=== PATIENT | female | born 1945 | race Caucasian/White ===

== ENCOUNTER 2018-09-23 13:47 | Emergency (ER) | payer OTHER ==
[2018-09-23] MEDS ORDERED: MORPHINE 4 MG/ML SYR ONE (14:52)
[2018-09-23] MEDS ORDERED: ONDANSETRON 4 MG/2 ML VIAL ONE (14:52)
[2018-09-23] MEDS ORDERED: NA CHLORIDE 0.9% 1,000 ML ONE (14:52)
[2018-09-23 15:10] LABS: ALT/SGPT 27 U/L (12-78); AST/SGOT 17 U/L (15-37); Albumin 3.9 g/dL (3.4-5.0); Alkaline Phosphatase 62 U/L (45-117); BUN Blood Urea Nitrogen 22 mg/dL (7-18); Bicarbonate 27 mmol/L (21-32); Bilirubin Direct 0.1 mg/dL (0-0.2); Bilirubin Total 0.4 mg/dL (0.2-1.0); Glucose Level 106 mg/dL (74-106); Lipase 111 U/L (73-393); Protein, Total 7.4 g/dL (6.4-8.2); Sodium Level 139 mmol/L (136-145)
[2018-09-23 15:25] LABS: Absolute Lymphocytes (CBC) 2.3 K/uL (0.7-4.9); Absolute Monocytes 0.4 K/uL (0.1-1.3); Basophils % 1.1 % (0-1.3); Eosinophils % 3.3 % (0-4.4); Hematocrit 41.1 % (36.0-45.0); Lymphocytes % 46.5 % (15.3-44.8); MCH 32.8 pg (27.0-35.0); MCV 96.6 fL (80-100); MPV 8.6 fL (7.6-11.3); Monocytes % 8.9 % (3.3-12.3); RBC Red Blood Cell Count 4.26 M/uL (3.86-4.86)
[2018-09-23 15:46] LABS: Urine Blood NEGATIVE (NEG); Urine Glucose NEGATIVE (NEG); Urine Protein NEGATIVE (NEG)
--- NOTE | 2018-09-23 16:53 | RAD REPORT ---
EXAM DESCRIPTION: CT - Abdomen Pelvis W Contrast - 09/23/2018 4:34 pm CLINICAL HISTORY: Abdominal pain. COMPARISON: None. TECHNIQUE: Computed axial tomography of the abdomen and pelvis was obtained. 100 cc Isovue-300 is ad ministered intravenously. Oral contrast was given. All CT scans are performed using dose optimization technique as appropriate and may include automated exposure control or mA/KV adjustment according to patient size. FINDINGS: The liver, spleen, pancreas, adrenals and kidneys appear unremarkable. There is no evidence of diverticulitis A hysterectomy has been performed. A tiny umbilical hernia. An inguinal hernia is not seen IMPRESSION: No acute abnormality displayed
--- NOTE | 2018-09-23 16:57 | EDPHYS ---
Physician Documentation [facility] Name: Ghulam Acevedo Age: 73 yrs Sex: Female : 1945 Arrival Date: 09/23/2018 Time: 13:55 Bed 14 Private MD: ED Physician Antonia Yi HPI: 09/23 14:20 This 73 yrs old Female presents to ER via Ambulatory with complaints of ma2 Doctor Referral, Abdominal Pain. 14:20 The patient presents with abdominal pain. Onset: The symptoms/episode began/occurred ma2 suddenly, 12 day(s) ago. The symptoms do not radiate. Associated signs and symptoms: Pertinent positives: Pertinent negatives: nausea, vomiting, and diarrhea, nausea and vomiting, blood in stools, constipation, diarrhea, dysuria, palpitations, shortness of breath. The symptoms are described as constant. Severity of pain: At its worst the pain was moderate in the emergency department the pain is unchanged. The patient has not experienced similar symptoms in the past. Historical: - Allergies: 14:01 benzocaine; aj1 14:01 Keflex; aj1 - Home Meds: 14:01 "osteoporosis pill once a week" [Active]; aj1 - PMHx: 14:01 Osteoporosis; aj1 - PSHx: 14:01 Hernia repair; Knee surgery; rotator cuff repair; facial surgery; dental surgery; aj1 Appendectomy; - Immunization history:: Flu vaccine is not up to date. - Social history:: Smoking status: Patient/guardian denies using tobacco, Patient/guardian denies using alcohol, The patient lives alone, with family. - Ebola Screening: : Patient denies travel to an Ebola-affected area in the 21 days before illness onset. - Family history:: not pertinent. - Hospitalizations: : No recent hospitalization is reported. ROS: 14:20 Constitutional: Negative for fever, chills, and weight loss, Cardiovascular: Negative ma2 for chest pain, palpitations, and edema, Respiratory: Negative for shortness of breath, cough, wheezing, and pleuritic chest pain, Back: Negative for injury and pain, MS/Extremity: Negative for injury and deformity, Psych: Negative for depression, anxiety, suicide ideation, homicidal ideation, and hallucinations, Endocrine: Negative for neck swelling, polydipsia, polyuria, polyphagia, and marked weight changes. 14:20 Abdomen/GI: Positive for abdominal pain, Negative for nausea and vomiting, diarrhea, constipation, anorexia, rectal pain, rectal bleeding. 14:20 All other systems are negative. Exam: 14:20 Constitutional: This is a well developed, well nourished patient who is awake, alert, ma2 and in no acute distress. Eyes: Pupils equal round and reactive to light, extra-ocular motions intact. Lids and lashes normal. Conjunctiva and sclera are non-icteric and not injected. Cornea within normal limits. Periorbital areas with no swelling, redness, or edema. Neck: Trachea midline, no thyromegaly or masses palpated, and no cervical lymphadenopathy. Supple, full range of motion without nuchal rigidity, or vertebral point tenderness. No Meningismus. Cardiovascular: Regular rate and rhythm with a normal S1 and S2. No gallops, murmurs, or rubs. Normal PMI, no JVD. No pulse deficits. Respiratory: Lungs have equal breath sounds bilaterally, clear to auscultation and percussion. No rales, rhonchi or wheezes noted. No increased work of breathing, no retractions or nasal flaring. MS/ Extremity: Pulses equal, no cyanosis. Neurovascular intact. Full, normal range of motion. Neuro: Awake and alert, GCS 15, oriented to person, place, time, and situation. Cranial nerves II-XII grossly intact. Motor strength 5/5 in all extremities. Sensory grossly intact. Cerebellar exam normal. Normal gait. Psych: Awake, alert, with orientation to person, place and time. Behavior, mood, and affect are within normal limits. 14:20 Abdomen/GI: Inspection: abdomen appears normal, Bowel sounds: normal, Palpation: mass, that is hard, that is tender, approximately .5 cm(s), of the right lower quadrant, over right inguinal hernia, tender, i did not attempt reducing d/t tenderness, skin over is wnl . Vital Signs: 14:01 BP 149 / 67; Pulse 67; Resp 18; Temp 98.4; Pulse Ox 97% on R/A; Weight 82.1 kg (R); aj1 Height 5 ft. 5 in. (165.10 cm) (R); Pain 10/10; 14:56 BP 135 / 65; Pulse 66; Resp 14; Pulse Ox 95% ; bp 15:59 BP 114 / 66; Pulse 64; Resp 14; Pulse Ox 96% ; bp 16:42 BP 122 / 51; Pulse 65; Resp 14; Pulse Ox 95% ; bp 17:08 BP 112 / 49; Pulse 63; Resp 14; Pulse Ox 97% ; bp 14:01 Body Mass Index 30.12 (82.10 kg, 165.10 cm) aj1 MDM: 14:06 Patient medically screened. ma2 14:20 Differential diagnosis: MSK pain, hernia inguinal strangulated vs incarcerated, vs ma2 direct inguinal hernia '. 16:55 Data reviewed: vital signs, nurses notes, EMS record, radiologic studies, CT scan. ma2 Counseling: I had a detailed discussion with the patient and/or guardian regarding: the historical points, exam findings, and any diagnostic results supporting the discharge/admit diagnosis, the presence of at least one elevated blood pressure reading (>120/80) during this emergency department visit, the need for outpatient follow up. Response to treatment: the patient's symptoms have resolved after treatment. 09/23 14:04 Order name: Basic Metabolic Panel; Complete Time: 15:54 ma2 09/23 14:04 Order name: CBC with Diff; Complete Time: 15:54 ma2 09/23 14:04 Order name: Creatinine for Radiology; Complete Time: 15:54 ma2 09/23 14:04 Order name: Hepatic Function; Complete Time: 15:54 ma2 09/23 14:04 Order name: Lipase; Complete Time: 15:54 ma2 09/23 14:42 Order name: Urine Dipstick--Ancillary (enter results); Complete Time: 15:54 gm 09/23 14:04 Order name: NPO; Complete Time: 14:20 ma2 09/23 14:04 Order name: IV Saline Lock; Complete Time: 14:53 ma2 09/23 14:04 Order name: Labs collected and sent; Complete Time: 14:53 ma2 09/23 14:19 Order name: CT Abd/Pelvis - W/Contrast; Complete Time: 16:55 ma2 Administered Medications: 14:30 Drug: NS 0.9% 1000 ml Route: IV; Rate: 1 bolus; Site: right wrist; bp 15:30 Follow up: IV Status: Completed infusion; IV Intake: 1000ml bp 14:30 Drug: morphine 4 mg Route: IVP; Site: right wrist; bp 15:00 Follow up: Response: Pain is decreased bp 14:30 Drug: Zofran 4 mg Route: IVP; Site: right wrist; bp 15:00 Follow up: Response: No adverse reaction bp Disposition: 09/23/18 16:56 Discharged to Home. Impression: Abrasion of abdominal wall. - Condition is Stable. - Prescriptions for Tylenol- Codeine #3 300-30 mg Oral Tablet - take 2 tablet by ORAL route every 6 hours As needed; 30 tablet. - Medication Reconciliation Form, Thank You Letter, Antibiotic Education, Prescription Opioid Use form. - Follow up: Private Physician; When: Tomorrow; Reason: Continuance of care. Signatures: Dispatcher [employer] EDLeonarda Kelly RN RN aj1 Pj Jeffrey RN RN Antonia Najera MD MD ma2 Corrections: (The following items were deleted from the chart) 17:09 16:56 09/23/2018 16:56 Discharged to Home. Impression: Abrasion of abdominal wall. bp Condition is Stable. Forms are Medication Reconciliation Form, Thank You Letter, Antibiotic Education, Prescription Opioid Use. Follow up: Private Physician; When: Tomorrow; Reason: Continuance of care. ma2
--- NOTE | 2018-09-23 16:57 | ER ---
Nurse's Notes [facility] Name: Ghulam Acevedo Age: 73 yrs Sex: Female : 1945 Arrival Date: 09/23/2018 Time: 13:55 Bed 14 Private MD: Diagnosis: Abrasion of abdominal wall Presentation: 09/23 13:56 Presenting complaint: Patient states: 2 weeks ago she picked up a barrel of wet dirt aj1 and has been having abdominal pain ever since. Today she went to see her PHCP, she called Dr. Mcadams, who was concerned that her hernia might be strangulated, and told her to come to the ER immediately. Patient reports pain to right inguinal area. Denies N/V/D. Transition of care: patient was not received from another setting of care. Onset of symptoms was September 23, 2018. Risk Assessment: Do you want to hurt yourself or someone else? Patient reports no desire to harm self or others. Initial Sepsis Screen: Does the patient meet any 2 criteria? No. Patient's initial sepsis screen is negative. Does the patient have a suspected source of infection? Yes: Acute abdominal pain. Care prior to arrival: None. 13:56 Method Of Arrival: Ambulatory aj 13:56 Acuity: JENNIFER 3 aj1 Triage Assessment: 14:01 General: Appears in no apparent distress. uncomfortable, Behavior is calm, cooperative, aj1 appropriate for age. Pain: Complains of pain in right femoral area and right inguinal area Pain currently is 10 out of 10 on a pain scale. Neuro: Level of Consciousness is awake, alert, obeys commands. Cardiovascular: Patient's skin is warm and dry. Respiratory: Airway is patent Respiratory effort is even, unlabored, Respiratory pattern is regular, symmetrical. GI: Reports lower abdominal pain. Historical: - Allergies: 14:01 benzocaine; aj1 14:01 Keflex; aj1 - Home Meds: 14: "osteoporosis pill once a week" [Active]; aj1 - PMHx: 14:01 Osteoporosis; aj1 - PSHx: 14:01 Hernia repair; Knee surgery; rotator cuff repair; facial surgery; dental surgery; aj1 Appendectomy; - Immunization history:: Flu vaccine is not up to date. - Social history:: Smoking status: Patient/guardian denies using tobacco, Patient/guardian denies using alcohol, The patient lives alone, with family. - Ebola Screening: : Patient denies travel to an Ebola-affected area in the 21 days before illness onset. - Family history:: not pertinent. - Hospitalizations: : No recent hospitalization is reported. Screenin:54 Abuse screen: Denies threats or abuse. Denies injuries from another. Nutritional bp screening: No deficits noted. Tuberculosis screening: No symptoms or risk factors identified. Fall Risk None identified. Assessment: 14:10 General: Appears in no apparent distress. uncomfortable, Behavior is cooperative, bp appropriate for age, anxious. Pain: Complains of pain in right inguinal area. Neuro: Level of Consciousness is awake, alert, obeys commands, Oriented to person, place, time, situation, Appropriate for age. Cardiovascular: No deficits noted. Respiratory: Airway is patent Respiratory effort is even, unlabored, Respiratory pattern is regular, symmetrical. GI: No signs and/or symptoms were reported involving the gastrointestinal system. : No signs and/or symptoms were reported regarding the genitourinary system. EENT: No deficits noted. Derm: No deficits noted. Musculoskeletal: Circulation, motion, and sensation intact. Range of motion: intact in all extremities. 14:56 Reassessment: PT COMPLETED PO CONTRAST, CT NOTIFIED. bp 16:00 Reassessment: CT PENDING. VS STABLE ON MONITOR. bp 16:45 Reassessment: PT RETURNED FROM CT. bp 17:07 Reassessment: PT D/C HOME AMBULATORY, DX WITH ABDOMINAL WALL ABRASION. bp Vital Signs: 14:01 BP 149 / 67; Pulse 67; Resp 18; Temp 98.4; Pulse Ox 97% on R/A; Weight 82.1 kg (R); aj1 Height 5 ft. 5 in. (165.10 cm) (R); Pain 10/10; 14:56 BP 135 / 65; Pulse 66; Resp 14; Pulse Ox 95% ; bp 15:59 BP 114 / 66; Pulse 64; Resp 14; Pulse Ox 96% ; bp 16:42 BP 122 / 51; Pulse 65; Resp 14; Pulse Ox 95% ; bp 17:08 BP 112 / 49; Pulse 63; Resp 14; Pulse Ox 97% ; bp 14:01 Body Mass Index 30.12 (82.10 kg, 165.10 cm) aj1 ED Course: 13:55 Patient arrived in ED. tw3 13:59 Triage completed. aj1 14:01 Arm band placed on Patient placed in an exam room. aj1 14:02 Antonia Yi MD is Attending Physician. ma2 14:03 Pj Jeffrey, RN is Primary Nurse. bp 14:15 Inserted saline lock: 20 gauge in right wrist, using aseptic technique. Blood collected.bp 14:54 Patient has correct armband on for positive identification. Placed in gown. Bed in low bp position. Call light in reach. Side rails up X2. Adult w/ patient. Pulse ox on. NIBP on. 16:34 CT Abd/Pelvis - W/Contrast In Process Unspecified. EDMS 17:08 No provider procedures requiring assistance completed. IV discontinued, intact, bp bleeding controlled, No redness/swelling at site. Pressure dressing applied. Administered Medications: 14:30 Drug: NS 0.9% 1000 ml Route: IV; Rate: 1 bolus; Site: right wrist; bp 15:30 Follow up: IV Status: Completed infusion; IV Intake: 1000ml bp 14:30 Drug: morphine 4 mg Route: IVP; Site: right wrist; bp 15:00 Follow up: Response: Pain is decreased bp 14:30 Drug: Zofran 4 mg Route: IVP; Site: right wrist; bp 15:00 Follow up: Response: No adverse reaction bp Intake: 15:30 IV: 1000ml; Total: 1000ml. bp Outcome: 16:56 Discharge ordered by . ma2 17:08 Discharged to home ambulatory, with family. bp 17:08 Condition: stable 17:08 Discharge instructions given to patient, Instructed on discharge instructions, follow up and referral plans. medication usage, Demonstrated understanding of instructions, follow-up care, medications, Prescriptions given X 1. 17:09 Patient left the ED. bp Signatures: Dispatcher [employer] EDNM Leonarda Jones RN RN ajZoya Machado tw3 Pj Jeffrey, MURIEL RN bp Antonia Yi MD MD ma
== END 2018-09-23 17:09 | disposition home or self-care (01) ==
LOC: ER 13:47
DX: S30.811A Abrasion of abdominal wall, initial encounter (principal); Z88.6 Allergy status to analgesic agent
CPT/HCPCS: 36415; 74177; 80048; 80076; 81003; 83690; 85025; 96361; 96374; 96375; 99284; J2405; J7030; Q9967

== ENCOUNTER 2023-04-19 11:28 | Emergency (ER) | payer MEDICARE ==
--- OUTSIDE RECORDS SUMMARY | 2023-04-19 11:37 | XMS REPORT | Continuity of Care Document ---
:1945 Author Organization [facility] t Address [address] [place] [address] [place] [id number] Care Team Providers Name Role Phone Chaisdy Lo Primary Care Physician Chasidy Lo Attending Clinician Unavailable Alanna Fernández Attending Clinician KLAUS_Jamie Attending Clinician Unavailable Susy Mina Attending Clinician Ortiz Attending Clinician Unavailable CHASIDY LO Attending Clinician Unavailable PEDROSO_V Attending Clinician Unavailable Rocio Botello Attending Clinician ROCIO READ Attending Clinician Unavailable BWilliams Attending Clinician Unavailable Only, Adc Pob2 Test Attending Clinician Unavailable Demian Villafuerte DO Attending Clinician DEMIAN VILLAFUERTE Attending Clinician Unavailable Lissa RN, Claudia T Attending Clinician Unavailable Provider, [facility] Attending Clinician Unavailable SHARRON CHADWICK Attending Clinician Unavailable Lula PT, Rosemary T Attending Clinician Unavailable Sharron Chadwick MD Attending Clinician Luisa Lara PT Attending Clinician Unavailable Ana Martins PTA Attending Clinician Unavailable Doctor Unassigned, [place] Attending Clinician Unavailable Rajeev Rosa PT, Kristin Attending Clinician Unavailable Humphrey Muhammad MD Attending Clinician HUMPHREY MUHAMMAD Attending Clinician Unavailable HUMPHREY MUHAMMAD Attending Clinician Unavailable Rubina Rodrigez S Attending Clinician Cristian Le MD Attending Clinician CRISTIAN LE Attending Clinician Unavailable Edwin Jewell Attending Clinician EDWIN SWIFT Attending Clinician Unavailable YARELI WAGGONER Attending Clinician Unavailable Yareli Waggoner DO Attending Clinician Tono Marie DO Attending Clinician Thai Savage MD Attending Clinician THAI SAVAGE Attending Clinician Unavailable OWENS_T Admitting Clinician Unavailable Delbridge_T Admitting Clinician Unavailable CHASIDY LO Admitting Clinician Unavailable PEDROSO_V Admitting Clinician Unavailable BWilliams Admitting Clinician Unavailable HUMPHREY MUHAMMAD Admitting Clinician Unavailable YARELI WAGGONER Admitting Clinician Unavailable TONO MARIE Admitting Clinician Unavailable Payers Payer Name Policy Type Policy Number Effective Date Expiration Date Luiz prieto [employer] [id number] 2018-04-08spring 00:00:00 [facility] [id number] 2021-11-08 (MEDICARE 00:00:00 REPLACEMENT HMO) [employer] C1 [id number] 2020-11-08 Common g Medicare 00:00:00 [facility] [employer] C1 [id number] 2020-11-08 Common g Medicare 00:00:00 [facility] [employer] C1 [id number] 2020-11-08 Common g Medicare 00:00:00 [facility] [employer] C1 [id number] 2020-11-08 Common g Medicare 00:00:00 [facility] [employer] C1 [id number] 2020-11-08 Common g Medicare 00:00:00 [facility] [employer] C1 [id number] 2020-11-08 Common g Medicare 00:00:00 [facility] [employer] C1 [id number] 2020-11-08 Common g Medicare 00:00:00 [facility] [employer] C1 [id number] 2020-11-08 Common g Medicare 00:00:00 [facility] [employer] C1 [id number] 2020-11-08 Common g Medicare 00:00:00 [facility] [employer] C1 [id number] 2020-11-08 Common g Medicare 00:00:00 [facility] [employer] C1 [id number] 2020-11-08 Common g Medicare 00:00:00 [facility] [employer] C1 [id number] 2020-11-08 Common g Medicare 00:00:00 [facility] [employer] C1 [id number] 2020-11-08 Common g Medicare 00:00:00 [facility] [employer] C1 [id number] 2020-11-08 Common g Medicare 00:00:00 [facility] [employer] C1 [id number] 2020-11-08 Common g Medicare 00:00:00 [facility] [employer] C1 [id number] 2020-11-08 Common g Medicare 00:00:00 [facility] [employer] C1 [id number] 2020-11-08 Common g Medicare 00:00:00 [facility] [employer] C1 [id number] 2020-11-08 Common g Medicare 00:00:00 [facility] [employer] C1 [id number] 2020-11-08 Common g Medicare 00:00:00 [facility] Problems Condition Condition Condition Status Onset Resolution Last Treating Co mments Source Name Details Category Date Date Treatment Clinician Date [id number] Age-relate Problem Com wed d Spirit osteoporos - CHI is without [facility] pathologic Medica l [facility] fracture [id number] 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, left - CHI hand [facility] [id number] Genital Problem Common herpes Spirit simplex, - CHI unspecifie [facility] [id number] Migraine Problem Common with aura Spirit and - [facility]I without [facility] migrainosu Medica l s, not Center intractabl e [id number] Mixed Problem Common hyperlipid Spirit emia - [facility] [id number] Chronic Problem Common maxillary Spirit sinusitis - [facility] [id number] Body mass Problem Com mon index Spirit [BMI] - CHI 30.0-30.9, [facility] [id number] Other Problem Common obesity Spirit due to - CHI excess [facility] Lower Lower Problem Common urinary urinary Spirit tract tract - CHI symptoms symptoms [facility] due [facility] due to [facility] benign benign Medical prostatic prostatic Cent er hypertroph hyperplasi y a No known No known Disease Unive rs active active ity of problems problems [facility] Allergies, Adverse Reactions, Alerts Allergy Allergy Status Severity Reaction(s) Onset Inactive Treating Comm ents Source Name Type Date Date Clinician Ondanset Propensi Active Nausea 2015-11 More Univer s izabella ty to and/or 0-21 nausea, ity of adverse Vomiting 00:00: not with [place] reaction 00 phenergan Medic al [facility] ONDANSET DRUG Active Med N/V 2015-11 Univers IZABELLA INGREDI 0-21 ity of 00:00: [place] 00 Medical [facility] Clindamy Propensi Active Hives Univer s chapito ty to 6-08 ity of adverse 00:00: [place] reaction 00 Medical [facility] CLINDAMY DRUG Active High Hives Univers CHAPITO INGREDI 6-08 ity of 00:00: [place] 00 Medical Branch Benzocai Propensi Active Anaphylaxis 2008-11 U nivers ne ty to 1-05 ity of adverse 00:00: [place] reaction 00 Medical [facility] BENZOCAI DRUG Active High Anaphylaxis 2008-11 Uni vers NE INGREDI 1-05 ity of 00:00: [place] 00 Medical Branch Cephalex Propensi Active Shortness of Univers in ty to Breath 8-25 ity of Monohydr adverse 00:00: [place] ate reaction 00 Medical [facility] Meperidi Propensi Active Hives Univer s ne Hcl ty to 8-25 ity of adverse 00:00: [place] reaction 00 Medical s Branch CEPHALEX DRUG Active High SOB Univers IN INGREDI 07-02 ity of MONOHYDR 00:00: [place] ATE 00 Medical Branch MEPERIDI DRUG Active High Hives Univers NE HCL INGREDI 07-02 ity of 00:00: [place] 00 Medical Branch meperidi meperidi Active hives Common ne ne [facility] 7361 Drug Active Stop Common allergy breathing [facility] 8091 Drug Active Stop Common allergy breathing [facility] Social History Social Habit Start Date Stop Date Quantity Comments Source History of Tobacco Common [facility] Use [facility] Sex Assigned At Common Sp zia - [facility] Exposure to 2022-04-24 2022-05-04 Not sure [facility] SARS-CoV-2 (event) 00:00:00 14:58:00 [facility] Tobacco use and 2018-04-21 2018-04-21 Never used [facility] exposure 00:00:00 00:00:00 [facility] Smoking Status Start Date Stop Date Source Never Smoker [facility] Medications Ordered Filled Start Stop Current Ordering Indication Dosage Frequency Signature Comments Components Source Medication Medication Date Date Medication? Clinician (SIG) Name Name methylPREDN methylPREDN 2022- No QD methylPRED ISolone 4 ISolone 4 12-11 NISolone 4 MG MG 00:00: 00:00 MG 00 :00 Sulfamethox Sulfamethox 2021- No 1{table BID Sulfametho azole-Trime azole-Trime 07-10 t} xazole-Tri thoprim thoprim 00:00: 00:00 methoprim 800-160 MG 800-160 MG 00 :00 800-160 MG Bactrim DS Bactrim DS 2021- No 1{table BID Bactrim DS 800-160 MG 800-160 MG 06-30 t} 800-160 MG 00:00: 00:00 00 :00 Macrobid Macrobid 2021- No BID Macrobid 100 MG 100 MG 06-22 100 MG 00:00: 00:00 00 :00 Macrobid Macrobid 2- No BID Macrobid 100 MG 100 MG 06-22 100 MG 00:00: 00:00 00 :00 Symbicort Symbicort 2021- No 2{puffs BID Symbicort 80-4.5 80-4.5 -09-09 } 80-4.5 MCG/ACT MCG/ACT 00:00: 00:00 MCG/ACT 00 :00 Symbicort Symbicort 2- No 2{puffs BID Symbicort 80-4.5 80-4.5 -09-09 } 80-4.5 MCG/ACT MCG/ACT 00:00: 00:00 MCG/ACT 00 :00 Symbicort Symbicort 2021- No 2{puffs BID Symbicort 80-4.5 80-4.5 06-11 } 80-4.5 MCG/ACT MCG/ACT 00:00: 00:00 MCG/ACT 00 :00 Symbicort Symbicort 2- No 2{puffs BID Symbicort 80-4.5 80-4.5 06-11 } 80-4.5 MCG/ACT MCG/ACT 00:00: 00:00 MCG/ACT 00 :00 Symbicort Symbicort 2- No 2{puffs BID Symbicort 80-4.5 80-4.5 06-11 } 80-4.5 MCG/ACT MCG/ACT 00:00: 00:00 MCG/ACT 00 :00 Symbicort Symbicort 2- No 2{puffs BID Symbicort 80-4.5 80-4.5 06-11 } 80-4.5 MCG/ACT MCG/ACT 00:00: 00:00 MCG/ACT 00 :00 Symbicort Symbicort 2021- No 2{puffs BID Symbicort 80-4.5 80-4.5 06-11 } 80-4.5 MCG/ACT MCG/ACT 00:00: 00:00 MCG/ACT 00 :00 Symbicort Symbicort 2021- No 2{puffs BID Symbicort 80-4.5 80-4.5 06-11 } 80-4.5 MCG/ACT MCG/ACT 00:00: 00:00 MCG/ACT 00 :00 Symbicort Symbicort 2021- No 2{puffs BID Symbicort 80-4.5 80-4.5 06-11 } 80-4.5 MCG/ACT MCG/ACT 00:00: 00:00 MCG/ACT 00 :00 Symbicort Symbicort 2021- No 2{puffs BID Symbicort 80-4.5 80-4.5 06-11 } 80-4.5 MCG/ACT MCG/ACT 00:00: 00:00 MCG/ACT 00 :00 Symbicort Symbicort 2021- No 2{puffs BID Symbicort 80-4.5 80-4.5 06-11 } 80-4.5 MCG/ACT MCG/ACT 00:00: 00:00 MCG/ACT 00 :00 Nitrofurant Nitrofurant 2021- No 1{capsu BID Nitrofuran oin oin 06-11 le_with toin Macrocrysta Macrocrysta 00:00: 00:00 _food_o Macrocryst l 100 MG l 100 MG 00 :00 r_milk} al 100 MG Nitrofurant Nitrofurant 2021- No 1{capsu BID Nitrofuran oin oin 06-11 le_with toin Macrocrysta Macrocrysta 00:00: 00:00 _food_o Macrocryst l 100 MG l 100 MG 00 :00 r_milk} al 100 MG Phenazopyri Phenazopyri 2021- No 1{table TID Phenazopyr dine HCl dine HCl 06-11 t_after idine HCl 200 MG 200 MG 00:00: 00:00 _meals} 200 MG 00 :00 Phenazopyri Phenazopyri 0 2021- No 1{table TID Phenazopyr dine HCl dine HCl 06-11 t_after idine HCl 200 MG 200 MG 00:00: 00:00 _meals} 200 MG 00 :00 amoxicillin 2021-0 2021- No [id number] 1{tbl} Take 1 Univers -clavulanat 6-27 07-05 tablet by it y of e 00:00: 04:59 mouth 2 [place] (AUGMENTIN) 00 :00 (two) Medical 875-125 mg times Branch per tablet daily for 7 days. Amoxicillin Amoxicillin 2021-0 2021- No 1{table BID Amoxicilli -Pot -Pot 04-07-10 t} n-Pot Clavulanate Clavulanate 00:00: 00:00 Clavulanat 875-125 MG 875-125 MG 00 :00 e 875-125 MG Amoxicillin Amoxicillin 2021-2021- No 1{table BID Amoxicilli -Pot -Pot 04-07-10 t} n-Pot Clavulanate Clavulanate 00:00: 00:00 Clavulanat 875-125 MG 875-125 MG 00 :00 e 875-125 MG Baclofen 5 Baclofen 5 2021-0 2- No BID Baclofen 5 MG MG 5-20 06-19 MG 00:00: 00:00 00 :00 Baclofen 5 Baclofen 5 2-0 2022- No BID Baclofen 5 MG MG 5-20 06-19 MG 00:00: 00:00 00 :00 Baclofen 5 Baclofen 5 2-0 2022- No BID Baclofen 5 MG MG 5-20 06-19 MG 00:00: 00:00 00 :00 Baclofen 5 Baclofen 5 2022-0 2022- No BID Baclofen 5 MG MG 5-20 06-19 MG 00:00: 00:00 00 :00 Gabapentin Gabapentin 2022-0 No BID Gabapentin 300 MG 300 MG 5-05 300 MG 00:00: 00 Gabapentin Gabapentin 2022-0 No BID Gabapentin 300 MG 300 MG 5-05 300 MG 00:00: 00 Gabapentin Gabapentin 2022-0 No BID Gabapentin 600 MG 600 MG 5-05 600 MG 00:00: 00 Gabapentin Gabapentin 2022-0 No BID Gabapentin 600 MG 600 MG 5-05 600 MG 00:00: 00 Amoxicillin Amoxicillin 2021-0 2021- No 1{table BID Amoxicilli -Pot -Pot 12-03-05 t} n-Pot Clavulanate Clavulanate 00:00: 00:00 Clavulanat 875-125 MG 875-125 MG 00 :00 e 875-125 MG Amoxicillin Amoxicillin 0 2021- No 1{table BID Amoxicilli -Pot -Pot 26 02-05 t} n-Pot Clavulanate Clavulanate 00:00: 00:00 Clavulanat 875-125 MG 875-125 MG 00 :00 e 875-125 MG traMADol traMADol 2020-11 No 1{table traMADol HCl 50 MG HCl 50 MG 2-03 t_as_ne HCl 50 MG 00:00: eded} 00 traMADol traMADol 2020-11 No 1{table traMADol HCl 50 MG HCl 50 MG 2-03 t_as_ne HCl 50 MG 00:00: eded} traMADol traMADol 2020-11 No 1{table traMADol HCl 50 MG HCl 50 MG 2-03 t_as_ne HCl 50 MG 00:00: eded} 00 traMADol traMADol 2020-11 No 1{table traMADol HCl 50 MG HCl 50 MG 2-03 t_as_ne HCl 50 MG 00:00: eded} 00 traMADol traMADol 2020-11 No 1{table traMADol HCl 50 MG HCl 50 MG 2-03 t_as_ne HCl 50 MG 00:00: eded} 00 traMADol traMADol 2020-11 No 1{table traMADol HCl 50 MG HCl 50 MG 2-03 t_as_ne HCl 50 MG 00:00: eded} 00 traMADol traMADol 2020-11 No 1{table traMADol HCl 50 MG HCl 50 MG 2-03 t_as_ne HCl 50 MG 00:00: eded} 00 traMADol traMADol 2020-11 No 1{table traMADol HCl 50 MG HCl 50 MG 2-03 t_as_ne HCl 50 MG 00:00: eded} 00 traMADol traMADol 2020-11 No 1{table traMADol HCl 50 MG HCl 50 MG 2-03 t_as_ne HCl 50 MG 00:00: eded} 00 traMADol traMADol 2020-11 No 1{table traMADol HCl 50 MG HCl 50 MG 2-03 t_as_ne HCl 50 MG 00:00: eded} 00 traMADol traMADol 2020-11 No 1{table traMADol HCl 50 MG HCl 50 MG 2-03 t_as_ne HCl 50 MG 00:00: eded} 00 traMADol traMADol 2020-11 No 1{table traMADol HCl 50 MG HCl 50 MG 2-03 t_as_ne HCl 50 MG 00:00: eded} 00 traMADol traMADol 2020-11 No 1{table traMADol HCl 50 MG HCl 50 MG 2-03 t_as_ne HCl 50 MG 00:00: eded} 00 traMADol traMADol 2020-11 No 1{table traMADol HCl 50 MG HCl 50 MG 2-03 t_as_ne HCl 50 MG 00:00: eded} 00 Meloxicam Meloxicam 2020-11- No 1{table QD Meloxicam 7.5 MG 7.5 MG 0-25 11-23 t} 7.5 MG 00:00: 00:00 00 :00 Meloxicam Meloxicam 2020-11- No 1{table QD Meloxicam 7.5 MG 7.5 MG 0-25 11-23 t} 7.5 MG 00:00: 00:00 00 :00 Meloxicam Meloxicam 2020-11- No 1{table QD Meloxicam 7.5 MG 7.5 MG 0-25 11-23 t} 7.5 MG 00:00: 00:00 00 :00 Meloxicam Meloxicam 2020-11- No 1{table QD Meloxicam 7.5 MG 7.5 MG 0-25 11-23 t} 7.5 MG 00:00: 00:00 00 :00 Meloxicam Meloxicam 2020-11- No 1{table QD Meloxicam 7.5 MG 7.5 MG 0-25 11-23 t} 7.5 MG 00:00: 00:00 00 :00 Meloxicam Meloxicam 2020-11- No 1{table QD Meloxicam 7.5 MG 7.5 MG 0-25 11-23 t} 7.5 MG 00:00: 00:00 00 :00 Meloxicam Meloxicam 2020-11- No 1{table QD Meloxicam 7.5 MG 7.5 MG 0-25 11-23 t} 7.5 MG 00:00: 00:00 00 :00 Maxalt 10 Maxalt 10 2020-11 No QD Maxalt 10 MG MG 0-04 MG 00:00: 00 Maxalt 10 Maxalt 10 2020-11 No QD Maxalt 10 MG MG 0-04 MG 00:00: 00 Maxalt 10 Maxalt 10 2020-11 No QD Maxalt 10 MG MG 0-04 MG 00:00: 00 Maxalt 10 Maxalt 10 2020-11 No QD Maxalt 10 MG MG 0-04 MG 00:00: 00 Aimovig 140 Aimovig 140 2020-11 202- No Aimovig MG/ML MG/ML 0-04 01-31 140 MG/ML 00:00: 00:00 00 :00 Aimovig 140 Aimovig 140 2020-11- No Aimovig MG/ML MG/ML 0-04 -31 140 MG/ML 00:00: 00:00 00 :00 Aimovig 140 Aimovig 140 2020-11- No Aimovig MG/ML MG/ML 0-04 -31 140 MG/ML 00:00: 00:00 00 :00 Aimovig 140 Aimovig 140 2020-11- No Aimovig MG/ML MG/ML 0-04 -31 140 MG/ML 00:00: 00:00 00 :00 Imitrex 50 Imitrex 50 2020-0 No BID Imitrex 50 MG MG 9-29 MG 00:00: 00 Imitrex 50 Imitrex 50 2020-0 No BID Imitrex 50 MG MG 9-29 MG 00:00: 00 Imitrex 50 Imitrex 50 2020-0 No BID Imitrex 50 MG MG 9-29 MG 00:00: 00 Imitrex 50 Imitrex 50 2020-0 No BID Imitrex 50 MG MG 9-29 MG 00:00: 00 Imitrex 50 Imitrex 50 2020-0 No BID Imitrex 50 MG MG 9-29 MG 00:00: 00 Imitrex 50 Imitrex 50 2020-0 No BID Imitrex 50 MG MG 9-29 MG 00:00: 00 Imitrex 50 Imitrex 50 2020-0 No BID Imitrex 50 MG MG 9-29 MG 00:00: 00 Imitrex 50 Imitrex 50 2020-0 No BID Imitrex 50 MG MG 9-29 MG 00:00: 00 Imitrex 50 Imitrex 50 2020-0 No BID Imitrex 50 MG MG 9-29 MG 00:00: 00 Imitrex 50 Imitrex 50 2020-0 No BID Imitrex 50 MG MG 9-29 MG 00:00: 00 Imitrex 50 Imitrex 50 2020-0 No BID Imitrex 50 MG MG 9-29 MG 00:00: 00 Imitrex 50 Imitrex 50 2020-0 No BID Imitrex 50 MG MG 9-29 MG 00:00: 00 Imitrex 50 Imitrex 50 2020-0 No BID Imitrex 50 MG MG 9-29 MG 00:00: 00 Imitrex 50 Imitrex 50 2020-0 No BID Imitrex 50 MG MG 9-29 MG 00:00: 00 Imitrex 50 Imitrex 50 2020-0 No BID Imitrex 50 MG MG 9-29 MG 00:00: 00 Imitrex 50 Imitrex 50 2020-0 No BID Imitrex 50 MG MG 9-29 MG 00:00: 00 Imitrex 50 Imitrex 50 2020-0 No BID Imitrex 50 MG MG 9-29 MG 00:00: 00 Imitrex 50 Imitrex 50 2020-0 No BID Imitrex 50 MG MG 9-29 MG 00:00: 00 Imitrex 50 Imitrex 50 2020-0 No BID Imitrex 50 MG MG 9-29 MG 00:00: 00 Imitrex 50 Imitrex 50 2020-0 No BID Imitrex 50 MG MG 9-29 MG 00:00: 00 Imitrex 50 Imitrex 50 2020-0 No BID Imitrex 50 MG MG 9-29 MG 00:00: 00 Imitrex 50 Imitrex 50 2020-0 No BID Imitrex 50 MG MG 9-29 MG 00:00: 00 Imitrex 50 Imitrex 50 2020-0 No BID Imitrex 50 MG MG 9-29 MG 00:00: 00 Imitrex 50 Imitrex 50 2020-0 No BID Imitrex 50 MG MG 9-29 MG 00:00: 00 Imitrex 50 Imitrex 50 2021-0 No BID Imitrex 50 MG MG 9-29 MG 00:00: 00 Imitrex 50 Imitrex 50 0 No BID Imitrex 50 MG MG 9-29 MG 00:00: 00 Imitrex 50 Imitrex 50 0 No BID Imitrex 50 MG MG 9-29 MG 00:00: 00 Imitrex 50 Imitrex 50 No BID Imitrex 50 MG MG 9-29 MG 00:00: 00 Imitrex 50 Imitrex 50 No BID Imitrex 50 MG MG 9-29 MG 00:00: 00 Imitrex 50 Imitrex 50 No BID Imitrex 50 MG MG 9-29 MG 00:00: 00 Topiramate Topiramate No 1{table QD Topiramate 25 MG 25 MG 9-27 t} 25 MG 00:00: 00 Topiramate Topiramate 0 No 1{table QD Topiramate 25 MG 25 MG 9-27 t} 25 MG 00:00: 00 Topiramate Topiramate No 1{table QD Topiramate 25 MG 25 MG 9-27 t} 25 MG 00:00: 00 Topiramate Topiramate 0 No 1{table QD Topiramate 25 MG 25 MG 9-27 t} 25 MG 00:00: 00 Topiramate Topiramate 0 No 1{table QD Topiramate 25 MG 25 MG 9-27 t} 25 MG 00:00: 00 Topiramate Topiramate 0 No 1{table QD Topiramate 25 MG 25 MG 9-27 t} 25 MG 00:00: 00 Topiramate Topiramate No 1{table QD Topiramate 25 MG 25 MG 9-27 t} 25 MG 00:00: 00 Calcium Yes 1{tbl} Take 1 Univer s Carbonate-V 7-26 tablet by ity of it D3-Min 13:10: mouth. [place] 600 mg 42 Medical calcium- Branch 400 unit tablet LOVAZA, Yes Take by Univers omega-3-aci 7-26 mouth. ity of d ethyl 13:10: [place] esters, 1 42 Medical gram Branch capsule Calcium Yes 1{tbl} Take 1 Univer s Carbonate-V 7-26 tablet by ity of it D3-Min 13:10: mouth. [place] 600 mg 42 Medical calcium- Branch 400 unit tablet LOVAZA, [address] [facility] omega-3-aci 7-26 mouth. ity of d ethyl 13:10: [place] esters, 1 42 Medical gram Branch capsule Calcium 2020-0 Yes 1{tbl} Take 1 Univer s Carbonate-V 7-26 tablet by ity of it D3-Min 13:10: mouth. [place] 600 mg 42 Medical calcium- Branch 400 unit tablet LOVAZA, [address] [facility] omega-3-aci 7-26 mouth. ity of d ethyl 13:10: [place] esters, 1 42 Medical gram Branch capsule Calcium 2020-0 Yes 1{tbl} Take 1 Univer s Carbonate-V 7-26 tablet by ity of it D3-Min 13:10: mouth. [place] 600 mg 42 Medical calcium- Branch 400 unit tablet LOVAZA, [address] [facility] omega-3-aci 7-26 mouth. ity of d ethyl 13:10: [place] esters, 1 42 Medical gram Branch capsule Calcium 2020-0 Yes 1{tbl} Take 1 Univer s Carbonate-V 7-26 tablet by ity of it D3-Min 13:10: mouth. [place] 600 mg 42 Medical calcium- Branch 400 unit tablet LOVAZA, [address] [facility] omega-3-aci 7-26 mouth. ity of d ethyl 13:10: [place] esters, 1 42 Medical gram Branch capsule Calcium 2020-0 Yes 1{tbl} Take 1 Univer s Carbonate-V 7-26 tablet by ity of it D3-Min 13:10: mouth. [place] 600 mg 42 Medical calcium- Branch 400 unit tablet LOVAZA, 2020-[address] [facility] omega-3-aci 7-26 mouth. ity of d ethyl 13:10: [place] esters, 1 42 Medical gram Branch capsule Calcium 2020-0 Yes 1{tbl} Take 1 Univer s Carbonate-V 7-26 tablet by ity of it D3-Min 13:10: mouth. [place] 600 mg 42 Medical calcium- Branch 400 unit tablet LOVAZA, 2020-[address] [facility] omega-3-aci 7-26 mouth. ity of d ethyl 13:10: [place] esters, 1 42 Medical gram Branch capsule Calcium 2020-0 Yes 1{tbl} Take 1 Univer s Carbonate-V 7-26 tablet by ity of it D3-Min 13:10: mouth. [place] 600 mg 42 Medical calcium- Branch 400 unit tablet LOVAZA, [address] [facility] omega-3-aci 7-26 mouth. ity of d ethyl 13:10: [place] esters, 1 42 Medical gram Branch capsule Calcium 2020-0 Yes 1{tbl} Take 1 Univer s Carbonate-V 7-26 tablet by ity of it D3-Min 13:10: mouth. [place] 600 mg 42 Medical calcium- Branch 400 unit tablet LOVAZA, 2020-[address] [facility] omega-3-aci 7-26 mouth. ity of d ethyl 13:10: [place] esters, 1 42 Medical gram Branch capsule Calcium 2020-0 Yes 1{tbl} Take 1 Univer s Carbonate-V 7-26 tablet by ity of it D3-Min 13:10: mouth. [place] 600 mg 42 Medical calcium- Branch 400 unit tablet LOVAZA, 2020-[address] [facility] omega-3-aci 7-26 mouth. ity of d ethyl 13:10: [place] esters, 1 42 Medical gram Branch capsule Calcium 2020-0 Yes 1{tbl} Take 1 Univer s Carbonate-V 7-26 tablet by ity of it D3-Min 13:10: mouth. [place] 600 mg 42 Medical calcium- Branch 400 unit tablet LOVAZA, 2020-[address] [facility] omega-3-aci 7-26 mouth. ity of d ethyl 13:10: [place] esters, 1 42 Medical gram Branch capsule Calcium 2020-0 Yes 1{tbl} Take 1 Univer s Carbonate-V 7-26 tablet by ity of it D3-Min 13:10: mouth. [place] 600 mg 42 Medical calcium- Branch 400 unit tablet LOVAZA, 2020-[address] [facility] omega-3-aci 7-26 mouth. ity of d ethyl 13:10: [place] esters, 1 42 Medical gram Branch capsule Calcium 2020-0 Yes 1{tbl} Take 1 Univer s Carbonate-V 7-26 tablet by ity of it D3-Min 13:10: mouth. [place] 600 mg 42 Medical calcium- Branch 400 unit tablet LOVAZA, 0 Yes Take by Univers omega-3-aci 7-26 mouth. ity of d ethyl 13:10: [place] esters, 1 42 Medical gram Branch capsule Calcium 0 Yes 1{tbl} Take 1 Univer s Carbonate-V 7-26 tablet by ity of it D3-Min 13:10: mouth. [place] 600 mg 42 Medical calcium- Branch 400 unit tablet LOVAZA, 0 Yes Take by Univers omega-3-aci 7-26 mouth. ity of d ethyl 13:10: [place] esters, 1 42 Medical gram Branch capsule Calcium 0 Yes 1{tbl} Take 1 Univer s Carbonate-V 7-26 tablet by ity of it D3-Min 13:10: mouth. [place] 600 mg 42 Medical calcium- Branch 400 unit tablet LOVAZA, 0 Yes Take by Univers omega-3-aci 7-26 mouth. ity of d ethyl 13:10: [place] esters, 1 42 Medical gram Branch capsule Calcium Yes 1{tbl} Take 1 Univer s Carbonate-V 7-26 tablet by ity of it D3-Min 13:10: mouth. [place] 600 mg 42 Medical calcium- Branch 400 unit tablet LOVAZA, [address] [facility] omega-3-aci 7-26 mouth. ity of d ethyl 13:10: [place] esters, 1 42 Medical gram Branch capsule cyclobenzap 2020-1 Yes [id number] 10mg Take 1 Univers rine 10 mg 0-22 tablet by ity of tablet 00:00: mouth 3 (three) Medical times Branch daily. cyclobenzap 2020-1 Yes [id number] 10mg Take 1 Univers rine 10 mg 0-22 tablet by ity of tablet 00:00: mouth 3 (three) Medical times Branch daily. cyclobenzap 2020-1 Yes [id number] 10mg Take 1 Univers rine 10 mg 0-22 tablet by ity of tablet 00:00: mouth 3 (three) Medical times Branch daily. cyclobenzap 2020-1 Yes [id number] 10mg Take 1 Univers rine 10 mg 0-22 tablet by ity of tablet 00:00: mouth 3 (three) Medical times Branch daily. cyclobenzap 2020-1 Yes [id number] 10mg Take 1 Univers rine 10 mg 0-22 tablet by ity of tablet 00:00: mouth 3 00 (three) Medical times Branch daily. cyclobenzap 2020-1 Yes [id number] 10mg Take 1 [facility] 10 mg 0-22 tablet by [facility] tablet 00:00: mouth 3 [place] 00 (three) Medical times [facility] daily. cyclobenzap 2020-1 Yes [id number] 10mg Take 1 [facility] 10 mg 0-22 tablet by [facility] tablet 00:00: mouth 3 [place] 00 (three) Medical times [facility] daily. cyclobenzap 2020-1 Yes [id number] 10mg Take 1 [facility] 10 mg 0-22 tablet by [facility] tablet 00:00: mouth 3 00 (three) Medical times [facility] daily. cyclobenzap 2020-1 Yes [id number] 10mg Take 1 [facility] 10 mg 0-22 tablet by [facility] tablet 00:00: mouth 3 (three) [facility] times [facility] daily. cyclobenzap 2020-1 Yes [id number] 10mg Take 1 [facility] 10 mg 0-22 tablet by [facility] tablet 00:00: mouth 3 (three) Medical times [facility] daily. cyclobenzap 2020-1 Yes [id number] 10mg Take 1 [facility] r[facility] 10 mg 0-22 tablet by [facility] tablet 00:00: mouth 3 (three) [facility] times [facility] daily. cyclobenzap 2020-1 Yes [id number] 10mg Take 1 [facility] r[facility] 10 mg 0-22 tablet by [facility] tablet 00:00: mouth 3 00 (three) [facility] times [facility] daily. cyclobenzap 2020-1 Yes [id number] 10mg Take 1 [facility] r[facility] 10 mg 0-22 tablet by [facility] tablet 00:00: mouth 3 00 (three) [facility] times [facility] daily. cyclobenzap 2020-1 Yes [id number] 10mg Take 1 [facility] 10 mg 0-22 tablet by [facility] tablet 00:00: mouth 3 00 (three) Medical times [facility] daily. cyclobenzap 2020-1 Yes [id number] 10mg Take 1 [facility] r[facility] 10 mg 0-22 tablet by [facility] tablet 00:00: mouth 3 00 (three) Medical times [facility] daily. cyclobenzap 2020-1 Yes [id number] 10mg Take 1 [facility] rine 10 mg 0-22 tablet by [facility] tablet 00:00: mouth 3 [place] 00 (three) Medical times [facility] daily. acetaminoph 2020-0 Yes [id number] 1{tbl} Take 1 [facility] en-codeine 4-15 tablet by [facility] of (TYLENOL-CO 00:00: mouth [place] DEINE #3) 00 every 4 Medical 300-30 mg (four) Branch tablet hours as needed for Pain (scale 1-3). acetaminoph 2020-0 Yes [id number] 1{tbl} Take 1 [facility] en-codeine 4-15 tablet by [facility] of (TYLENOL-CO 00:00: mouth [place] DEINE #3) 00 every 4 Medical 300-30 mg (four) Branch tablet hours as needed for Pain (scale 1-3). acetaminoph 2020-0 Yes [id number] 1{tbl} Take 1 [facility] en-codeine 4-15 tablet by [facility] of (TYLENOL-CO 00:00: mouth [place] DEINE #3) 00 every 4 Medical 300-30 mg (four) Branch tablet hours as needed for Pain (scale 1-3). acetaminoph 2020-0 Yes [id number] 1{tbl} Take 1 [facility] en-codeine 4-15 tablet by [facility] of (TYLENOL-CO 00:00: mouth [place] DEINE #3) 00 every 4 Medical 300-30 mg (four) Branch tablet hours as needed for Pain (scale 1-3). acetaminoph 2020-0 Yes [id number] 1{tbl} Take 1 [facility] en-codeine 4-15 tablet by [facility] of (TYLENOL-CO 00:00: mouth [place] DEINE #3) 00 every 4 Medical 300-30 mg (four) Branch tablet hours as needed for Pain (scale 1-3). acetaminoph 2020-0 Yes [id number] 1{tbl} Take 1 [facility] en-codeine 4-15 tablet by [facility] of (TYLENOL-CO 00:00: mouth [place] DEINE #3) 00 every 4 Medical 300-30 mg (four) Branch tablet hours as needed for Pain (scale 1-3). acetaminoph 2020-0 Yes [id number] 1{tbl} Take 1 [facility] en-codeine 4-15 tablet by [facility] of (TYLENOL-CO 00:00: mouth [place] DEINE #3) 00 every 4 Medical 300-30 mg (four) Branch tablet hours as needed for Pain (scale 1-3). acetaminoph 2020-0 Yes [id number] 1{tbl} Take 1 [facility] en-codeine 4-15 tablet by [facility] of (TYLENOL-CO 00:00: mouth [place] DEINE #3) 00 every 4 Medical 300-30 mg (four) Branch tablet hours as needed for Pain (scale 1-3). acetaminoph 2020-0 Yes [id number] 1{tbl} Take 1 [facility] en-codeine 4-15 tablet by [facility] of (TYLENOL-CO 00:00: mouth [place] DEINE #3) 00 every 4 Medical 300-30 mg (four) Branch tablet hours as needed for Pain (scale 1-3). acetaminoph 2020-0 Yes [id number] 1{tbl} Take 1 [facility] en-codeine 4-15 tablet by [facility] of (TYLENOL-CO 00:00: mouth [place] DEINE #3) 00 every 4 Medical 300-30 mg (four) Branch tablet hours as needed for Pain (scale 1-3). acetaminoph 2020-0 Yes [id number] 1{tbl} Take 1 [facility] en-codeine 4-15 tablet by [facility] of (TYLENOL-CO 00:00: mouth [place] DEINE #3) 00 every 4 Medical 300-30 mg (four) Branch tablet hours as needed for Pain (scale 1-3). acetaminoph 2020-0 Yes [id number] 1{tbl} Take 1 [facility] en-codeine 4-15 tablet by [facility] of (TYLENOL-CO 00:00: mouth [place] DEINE #3) 00 every 4 Medical 300-30 mg (four) Branch tablet hours as needed for Pain (scale 1-3). acetaminoph 2020-0 Yes [id number] 1{tbl} Take 1 [facility] en-codeine 4-15 tablet by [facility] of (TYLENOL-CO 00:00: mouth [place] DEINE #3) 00 every 4 Medical 300-30 mg (four) Branch tablet hours as needed for Pain (scale 1-3). acetaminoph 2020-0 Yes [id number] 1{tbl} Take 1 [facility] en-codeine 4-15 tablet by [facility] of (TYLENOL-CO 00:00: mouth [place] DEINE #3) 00 every 4 Medical 300-30 mg (four) Branch tablet hours as needed for Pain (scale 1-3). acetaminoph 2020-0 Yes [id number] 1{tbl} Take 1 [facility] en-codeine 4-15 tablet by [facility] of (TYLENOL-CO 00:00: mouth [place] DEINE #3) 00 every 4 Medical 300-30 mg (four) Branch tablet hours as needed for Pain (scale 1-3). acetaminoph 2020-0 Yes [id number] 1{tbl} Take 1 [facility] en-codeine 4-15 tablet by [facility] of (TYLENOL-CO 00:00: mouth [place] DEINE #3) 00 every 4 Medical 300-30 mg (four) Branch tablet hours as needed for Pain (scale 1-3). alendronate Yes TAKE 1 [facility] ers 70 mg 7-13 TABLET BY [facility] of tablet 00:00: MOUTH WEEKLY Medical BEFORE Branch BREAKFAST, ON AN EMPTY STOMACH: REMAIN UPRIGHT FOR 30 MINUTES alendronate Yes TAKE 1 [facility] ers 70 mg 7-13 TABLET BY it[facility] of tablet 00:00: MOUTH WEEKLY Medical BEFORE Branch BREAKFAST, ON AN EMPTY STOMACH: REMAIN UPRIGHT FOR 30 MINUTES alendronate Yes TAKE 1 [facility] 70 mg 7-13 TABLET BY [facility] of tablet 00:00: MOUTH WEEKLY Medical BEFORE Branch BREAKFAST, ON AN EMPTY STOMACH: REMAIN UPRIGHT FOR 30 MINUTES alendronate Yes TAKE 1 [facility] 70 mg 7-13 TABLET BY [facility] of tablet 00:00: MOUTH WEEKLY Medical BEFORE Branch BREAKFAST, ON AN EMPTY STOMACH: REMAIN UPRIGHT FOR 30 MINUTES alendronate Yes TAKE 1 [facility] 70 mg 7-13 TABLET BY [facility] of tablet 00:00: MOUTH WEEKLY Medical BEFORE Branch BREAKFAST, ON AN EMPTY STOMACH: REMAIN UPRIGHT FOR 30 MINUTES alendronate Yes TAKE 1 [facility] 70 mg 7-13 TABLET BY [facility] of tablet 00:00: MOUTH WEEKLY Medical BEFORE Branch BREAKFAST, ON AN EMPTY STOMACH: REMAIN UPRIGHT FOR 30 MINUTES alendronate Yes TAKE 1 [facility] 70 mg 7-13 TABLET BY it[facility] of tablet 00:00: MOUTH WEEKLY Medical BEFORE Branch BREAKFAST, ON AN EMPTY STOMACH: REMAIN UPRIGHT FOR 30 MINUTES alendronate Yes TAKE 1 [facility] 70 mg 7-13 TABLET BY [facility] of tablet 00:00: MOUTH ONCE WEEKLY Medical BEFORE Branch BREAKFAST, ON AN EMPTY STOMACH: REMAIN UPRIGHT FOR 30 MINUTES alendronate Yes TAKE 1 [facility] 70 mg 7-13 TABLET BY [facility] of tablet 00:00: MOUTH ONCE WEEKLY Medical BEFORE Branch BREAKFAST, ON AN EMPTY STOMACH: REMAIN UPRIGHT FOR 30 MINUTES alendronate Yes TAKE 1 [facility] 70 mg 7-13 TABLET BY [facility] of tablet 00:00: MOUTH ONCE WEEKLY Medical BEFORE Branch BREAKFAST, ON AN EMPTY STOMACH: REMAIN UPRIGHT FOR 30 MINUTES alendronate Yes TAKE 1 [facility] 70 mg 7-13 TABLET BY [facility] of tablet 00:00: MOUTH ONCE WEEKLY Medical BEFORE Branch BREAKFAST, ON AN EMPTY STOMACH: REMAIN UPRIGHT FOR 30 MINUTES alendronate Yes TAKE 1 [facility] 70 mg 7-13 TABLET BY [facility] of tablet 00:00: MOUTH ONCE WEEKLY Medical BEFORE Branch BREAKFAST, ON AN EMPTY STOMACH: REMAIN UPRIGHT FOR 30 MINUTES alendronate Yes TAKE 1 [facility] 70 mg 7-13 TABLET BY [facility] of tablet 00:00: MOUTH ONCE WEEKLY Medical BEFORE Branch BREAKFAST, ON AN EMPTY STOMACH: REMAIN UPRIGHT FOR 30 MINUTES alendronate Yes TAKE 1 [facility] 70 mg 7-13 TABLET BY [facility] of tablet 00:00: MOUTH ONCE WEEKLY Medical BEFORE Branch BREAKFAST, ON AN EMPTY STOMACH: REMAIN UPRIGHT FOR 30 MINUTES alendronate Yes TAKE 1 [facility] 70 mg 7-13 TABLET BY [facility] of tablet 00:00: MOUTH ONCE WEEKLY Medical BEFORE Branch BREAKFAST, ON AN EMPTY STOMACH: REMAIN UPRIGHT FOR 30 MINUTES alendronate Yes TAKE 1 [facility] 70 mg 7-13 TABLET BY [facility] of tablet 00:00: MOUTH ONCE WEEKLY Medical BEFORE Branch BREAKFAST, ON AN EMPTY STOMACH: REMAIN UPRIGHT FOR 30 MINUTES valACYclovi Yes 500mg Take 500 [facility] r 500 mg 8-12 mg by [facility] tablet 00:00: mouth. [facility] valACYclovi Yes 500mg Take 500 [facility] n[facility] r 500 mg 8-12 mg by [facility] of tablet 00:00: mouth. [facility] valACYclovi Yes 500mg Take 500 [facility] n[facility] r 500 mg 8-12 mg by [facility] of tablet 00:00: mouth. [facility] valACYclovi 2015-0 Yes 500mg Take 500 [facility] n[facility] r 500 mg 8-12 mg by [facility] of tablet 00:00: mouth. [facility] valACYclovi 2014-0 Yes 500mg Take 500 [facility] n[facility] r 500 mg 8-12 mg by [facility] of tablet 00:00: mouth. [facility] valACYclovi 2014-0 Yes 500mg Take 500 [facility] n[facility] r 500 mg 8-12 mg by it[facility] of tablet 00:00: mouth. [facility] valACYclovi 2014-0 Yes 500mg Take 500 [facility] n[facility] r 500 mg 8-12 mg by [facility] of tablet 00:00: mouth. [facility] valACYclovi 2014-0 Yes 500mg Take 500 [facility] n[facility] r 500 mg 8-12 mg by [facility] of tablet 00:00: mouth. [facility] valACYclovi 2014-0 Yes 500mg Take 500 [facility] n[facility] r 500 mg 8-12 mg by it[facility] of tablet 00:00: mouth. [facility] valACYclovi 2014-0 Yes 500mg Take 500 [facility] n[facility] r 500 mg 8-12 mg by [facility] of tablet 00:00: mouth. [facility] valACYclovi 2015-0 Yes 500mg Take 500 [facility] nivers r 500 mg 8-12 mg by it[facility] of tablet 00:00: mouth. [facility] valACYclovi 2014-0 Yes 500mg Take 500 [facility] nivers r 500 mg 8-12 mg by ity of tablet 00:00: mouth. Medical [facility] valACYclovi 2014-0 Yes 500mg Take 500 [facility] nivers r 500 mg 8-12 mg by ity of tablet 00:00: mouth. [facility] Branch valACYclovi 2014-0 Yes 500mg Take 500 [facility] nivers r 500 mg 8-12 mg by ity of tablet 00:00: mouth. Medical Branch valACYclovi 2014-0 Yes 500mg Take 500 U nivers r 500 mg 8-12 mg by ity of tablet 00:00: mouth. [place] [facility] valACYclovi 2014-0 Yes 500mg Take 500 U nivers r 500 mg 8-12 mg by ity of tablet 00:00: mouth. [place] [facility] Azithromyci Azithromyci No QD Azithromyc n 250 MG n 250 MG in 250 MG Benzonatate Benzonatate No 1{capsu TID Benzonatat 200 MG 200 MG le} e 200 MG Diclofenac Diclofenac No 1{table Diclofenac Sodium 75 Sodium 75 t} Sodium 75 MG MG MG valACYclovi valACYclovi No 1{table QD valACYclov r HCl 500 r HCl 500 t_as_ne ir HCl 500 MG MG eded} MG Maxalt 10 Maxalt 10 No QD Maxalt 10 MG MG MG Alendronate Alendronate No QD Alendronat Sodium 70 Sodium 70 e Sodium MG MG 70 MG Alendronate Alendronate No QD Alendronat Sodium 70 Sodium 70 e Sodium MG MG 70 MG Diclofenac Diclofenac No 1{table Diclofenac Sodium 75 Sodium 75 t} Sodium 75 MG MG MG valACYclovi valACYclovi No 1{table QD valACYclov r HCl 500 r HCl 500 t_as_ne ir HCl 500 MG MG eded} MG Ondansetron Ondansetron No 1{table QD Ondansetro HCl 4 MG HCl 4 MG t_as_ne n HCl 4 MG eded} Alendronate Alendronate No QD Alendronat Sodium 70 Sodium 70 e Sodium MG MG 70 MG Diclofenac Diclofenac No 1{table Diclofenac Sodium 75 Sodium 75 t} Sodium 75 MG MG MG valACYclovi valACYclovi No 1{table QD valACYclov r HCl 500 r HCl 500 t_as_ne ir HCl 500 MG MG eded} MG SUMAtriptan SUMAtriptan No SUMAtripta Succinate Succinate n Succinate Ondansetron Ondansetron No 1{table QD Ondansetro HCl 4 MG HCl 4 MG t_as_ne n HCl 4 MG eded} Ondansetron Ondansetron No 1{table QD Ondansetro HCl 4 MG HCl 4 MG t_as_ne n HCl 4 MG eded} Alendronate Alendronate No QD Alendronat Sodium 70 Sodium 70 e Sodium MG MG 70 MG valACYclovi valACYclovi No 1{table QD valACYclov r HCl 500 r HCl 500 t_as_ne ir HCl 500 MG MG eded} MG Diclofenac Diclofenac No 1{table Diclofenac Sodium 75 Sodium 75 t} Sodium 75 MG MG MG SUMAtriptan SUMAtriptan No SUMAtripta Succinate Succinate n Succinate Ondansetron Ondansetron No 1{table QD Ondansetro HCl 4 MG HCl 4 MG t_as_ne n HCl 4 MG eded} Alendronate Alendronate No QD Alendronat Sodium 70 Sodium 70 e Sodium MG MG 70 MG valACYclovi valACYclovi No 1{table QD valACYclov r HCl 500 r HCl 500 t_as_ne ir HCl 500 MG MG eded} MG Diclofenac Diclofenac No 1{table Diclofenac Sodium 75 Sodium 75 t} Sodium 75 MG MG MG SUMAtriptan SUMAtriptan No SUMAtripta Succinate Succinate n Succinate Ondansetron Ondansetron No 1{table QD Ondansetro HCl 4 MG HCl 4 MG t_as_ne n HCl 4 MG eded} Alendronate Alendronate No QD Alendronat Sodium 70 Sodium 70 e Sodium MG MG 70 MG valACYclovi valACYclovi No 1{table QD valACYclov r HCl 500 r HCl 500 t_as_ne ir HCl 500 MG MG eded} MG Diclofenac Diclofenac No 1{table Diclofenac Sodium 75 Sodium 75 t} Sodium 75 MG MG MG SUMAtriptan SUMAtriptan No SUMAtripta Succinate Succinate n Succinate Ondansetron Ondansetron No 1{table QD Ondansetro HCl 4 MG HCl 4 MG t_as_ne n HCl 4 MG eded} Alendronate Alendronate No QD Alendronat Sodium 70 Sodium 70 e Sodium MG MG 70 MG valACYclovi valACYclovi No 1{table QD valACYclov r HCl 500 r HCl 500 t_as_ne ir HCl 500 MG MG eded} MG Diclofenac Diclofenac No 1{table Diclofenac Sodium 75 Sodium 75 t} Sodium 75 MG MG MG SUMAtriptan SUMAtriptan No SUMAtripta Succinate Succinate n Succinate Ondansetron Ondansetron No 1{table QD Ondansetro HCl 4 MG HCl 4 MG t_as_ne n HCl 4 MG eded} Alendronate Alendronate No QD Alendronat Sodium 70 Sodium 70 e Sodium MG MG 70 MG valACYclovi valACYclovi No 1{table QD valACYclov r HCl 500 r HCl 500 t_as_ne ir HCl 500 MG MG eded} MG Diclofenac Diclofenac No 1{table Diclofenac Sodium 75 Sodium 75 t} Sodium 75 MG MG MG SUMAtriptan SUMAtriptan No SUMAtripta Succinate Succinate n Succinate SUMAtriptan SUMAtriptan No SUMAtripta Succinate Succinate n Succinate Diclofenac Diclofenac No 1{table Diclofenac Sodium 75 Sodium 75 t} Sodium 75 MG MG MG valACYclovi valACYclovi No 1{table QD valACYclov r HCl 500 r HCl 500 t_as_ne ir HCl 500 MG MG eded} MG Ondansetron Ondansetron No 1{table QD Ondansetro HCl 4 MG HCl 4 MG t_as_ne n HCl 4 MG eded} Alendronate Alendronate No QD Alendronat Sodium 70 Sodium 70 e Sodium MG MG 70 MG SUMAtriptan SUMAtriptan No SUMAtripta Succinate Succinate n Succinate Diclofenac Diclofenac No 1{table Diclofenac Sodium 75 Sodium 75 t} Sodium 75 MG MG MG valACYclovi valACYclovi No 1{table QD valACYclov r HCl 500 r HCl 500 t_as_ne ir HCl 500 MG MG eded} MG Ondansetron Ondansetron No 1{table QD Ondansetro HCl 4 MG HCl 4 MG t_as_ne n HCl 4 MG eded} Alendronate Alendronate No QD Alendronat Sodium 70 Sodium 70 e Sodium MG MG 70 MG SUMAtriptan SUMAtriptan No SUMAtripta Succinate Succinate n Succinate Diclofenac Diclofenac No 1{table Diclofenac Sodium 75 Sodium 75 t} Sodium 75 MG MG MG valACYclovi valACYclovi No 1{table QD valACYclov r HCl 500 r HCl 500 t_as_ne ir HCl 500 MG MG eded} MG Ondansetron Ondansetron No 1{table QD Ondansetro HCl 4 MG HCl 4 MG t_as_ne n HCl 4 MG eded} Alendronate Alendronate No QD Alendronat Sodium 70 Sodium 70 e Sodium MG MG 70 MG SUMAtriptan SUMAtriptan No SUMAtripta Succinate Succinate n Succinate Diclofenac Diclofenac No 1{table Diclofenac Sodium 75 Sodium 75 t} Sodium 75 MG MG MG valACYclovi valACYclovi No 1{table QD valACYclov r HCl 500 r HCl 500 t_as_ne ir HCl 500 MG MG eded} MG Ondansetron Ondansetron No 1{table QD Ondansetro HCl 4 MG HCl 4 MG t_as_ne n HCl 4 MG eded} Alendronate Alendronate No QD Alendronat Sodium 70 Sodium 70 e Sodium MG MG 70 MG Diclofenac Diclofenac No 1{table Diclofenac Sodium 75 Sodium 75 t} Sodium 75 MG MG MG Aimovig 140 Aimovig 140 No Aimovig MG/ML MG/ML 140 MG/ML Alendronate Alendronate No QD Alendronat Sodium 70 Sodium 70 e Sodium MG MG 70 MG valACYclovi valACYclovi No 1{table QD valACYclov r HCl 500 r HCl 500 t_as_ne ir HCl 500 MG MG eded} MG Ondansetron Ondansetron No 1{table QD Ondansetro HCl 4 MG HCl 4 MG t_as_ne n HCl 4 MG eded} Maxalt 10 Maxalt 10 No QD Maxalt 10 MG MG MG SUMAtriptan SUMAtriptan No SUMAtripta Succinate Succinate n Succinate Diclofenac Diclofenac No 1{table Diclofenac Sodium 75 Sodium 75 t} Sodium 75 MG MG MG Aimovig 140 Aimovig 140 No Aimovig MG/ML MG/ML 140 MG/ML Alendronate Alendronate No QD Alendronat Sodium 70 Sodium 70 e Sodium MG MG 70 MG valACYclovi valACYclovi No 1{table QD valACYclov r HCl 500 r HCl 500 t_as_ne ir HCl 500 MG MG eded} MG Ondansetron Ondansetron No 1{table QD Ondansetro HCl 4 MG HCl 4 MG t_as_ne n HCl 4 MG eded} Maxalt 10 Maxalt 10 No QD Maxalt 10 MG MG MG SUMAtriptan SUMAtriptan No SUMAtripta Succinate Succinate n Succinate Diclofenac Diclofenac No 1{table Diclofenac Sodium 75 Sodium 75 t} Sodium 75 MG MG MG Aimovig 140 Aimovig 140 No Aimovig MG/ML MG/ML 140 MG/ML Alendronate Alendronate No QD Alendronat Sodium 70 Sodium 70 e Sodium MG MG 70 MG valACYclovi valACYclovi No 1{table QD valACYclov r HCl 500 r HCl 500 t_as_ne ir HCl 500 MG MG eded} MG Ondansetron Ondansetron No 1{table QD Ondansetro HCl 4 MG HCl 4 MG t_as_ne n HCl 4 MG eded} Maxalt 10 Maxalt 10 No QD Maxalt 10 MG MG MG SUMAtriptan SUMAtriptan No SUMAtripta Succinate Succinate n Succinate Diclofenac Diclofenac No 1{table Diclofenac Sodium 75 Sodium 75 t} Sodium 75 MG MG MG Aimovig 140 Aimovig 140 No Aimovig MG/ML MG/ML 140 MG/ML Alendronate Alendronate No QD Alendronat Sodium 70 Sodium 70 e Sodium MG MG 70 MG valACYclovi valACYclovi No 1{table QD valACYclov r HCl 500 r HCl 500 t_as_ne ir HCl 500 MG MG eded} MG Ondansetron Ondansetron No 1{table QD Ondansetro HCl 4 MG HCl 4 MG t_as_ne n HCl 4 MG eded} Maxalt 10 Maxalt 10 No QD Maxalt 10 MG MG MG SUMAtriptan SUMAtriptan No SUMAtripta Succinate Succinate n Succinate Diclofenac Diclofenac No 1{table Diclofenac Sodium 75 Sodium 75 t} Sodium 75 MG MG MG Aimovig 140 Aimovig 140 No Aimovig MG/ML MG/ML 140 MG/ML Alendronate Alendronate No QD Alendronat Sodium 70 Sodium 70 e Sodium MG MG 70 MG valACYclovi valACYclovi No 1{table QD valACYclov r HCl 500 r HCl 500 t_as_ne ir HCl 500 MG MG eded} MG Ondansetron Ondansetron No 1{table QD Ondansetro HCl 4 MG HCl 4 MG t_as_ne n HCl 4 MG eded} Maxalt 10 Maxalt 10 No QD Maxalt 10 MG MG MG SUMAtriptan SUMAtriptan No SUMAtripta Succinate Succinate n Succinate Ondansetron Ondansetron No 1{table QD Ondansetro HCl 4 MG HCl 4 MG t_as_ne n HCl 4 MG eded} Maxalt 10 Maxalt 10 No QD Maxalt 10 MG MG MG valACYclovi valACYclovi No 1{table QD valACYclov r HCl 500 r HCl 500 t_as_ne ir HCl 500 MG MG eded} MG Aimovig 140 Aimovig 140 No Aimovig MG/ML MG/ML 140 MG/ML Alendronate Alendronate No QD Alendronat Sodium 70 Sodium 70 e Sodium MG MG 70 MG SUMAtriptan SUMAtriptan No SUMAtripta Succinate Succinate n Succinate Diclofenac Diclofenac No 1{table Diclofenac Sodium 75 Sodium 75 t} Sodium 75 MG MG MG Ondansetron Ondansetron No 1{table QD Ondansetro HCl 4 MG HCl 4 MG t_as_ne n HCl 4 MG eded} Maxalt 10 Maxalt 10 No QD Maxalt 10 MG MG MG valACYclovi valACYclovi No 1{table QD valACYclov r HCl 500 r HCl 500 t_as_ne ir HCl 500 MG MG eded} MG Aimovig 140 Aimovig 140 No Aimovig MG/ML MG/ML 140 MG/ML Alendronate Alendronate No QD Alendronat Sodium 70 Sodium 70 e Sodium MG MG 70 MG SUMAtriptan SUMAtriptan No SUMAtripta Succinate Succinate n Succinate Diclofenac Diclofenac No 1{table Diclofenac Sodium 75 Sodium 75 t} Sodium 75 MG MG MG Ondansetron Ondansetron No 1{table QD Ondansetro HCl 4 MG HCl 4 MG t_as_ne n HCl 4 MG eded} Maxalt 10 Maxalt 10 No QD Maxalt 10 MG MG MG valACYclovi valACYclovi No 1{table QD valACYclov r HCl 500 r HCl 500 t_as_ne ir HCl 500 MG MG eded} MG SUMAtriptan SUMAtriptan No SUMAtripta Succinate Succinate n Succinate Aimovig 140 Aimovig 140 No Aimovig MG/ML MG/ML 140 MG/ML Alendronate Alendronate No QD Alendronat Sodium 70 Sodium 70 e Sodium MG MG 70 MG Diclofenac Diclofenac No 1{table Diclofenac Sodium 75 Sodium 75 t} Sodium 75 MG MG MG Ondansetron Ondansetron No 1{table QD Ondansetro HCl 4 MG HCl 4 MG t_as_ne n HCl 4 MG eded} Alendronate Alendronate No QD Alendronat Sodium 70 Sodium 70 e Sodium MG MG 70 MG valACYclovi valACYclovi No 1{table QD valACYclov r HCl 500 r HCl 500 t_as_ne ir HCl 500 MG MG eded} MG SUMAtriptan SUMAtriptan No SUMAtripta Succinate Succinate n Succinate Aimovig 140 Aimovig 140 No Aimovig MG/ML MG/ML 140 MG/ML Maxalt 10 Maxalt 10 No QD Maxalt 10 MG MG MG Diclofenac Diclofenac No 1{table Diclofenac Sodium 75 Sodium 75 t} Sodium 75 MG MG MG Ondansetron Ondansetron No 1{table QD Ondansetro HCl 4 MG HCl 4 MG t_as_ne n HCl 4 MG eded} Alendronate Alendronate No QD Alendronat Sodium 70 Sodium 70 e Sodium MG MG 70 MG valACYclovi valACYclovi No 1{table QD valACYclov r HCl 500 r HCl 500 t_as_ne ir HCl 500 MG MG eded} MG SUMAtriptan SUMAtriptan No SUMAtripta Succinate Succinate n Succinate Aimovig 140 Aimovig 140 No Aimovig MG/ML MG/ML 140 MG/ML Maxalt 10 Maxalt 10 No QD Maxalt 10 MG MG MG Diclofenac Diclofenac No 1{table Diclofenac Sodium 75 Sodium 75 t} Sodium 75 MG MG MG Alendronate Alendronate No QD Alendronat Sodium 70 Sodium 70 e Sodium MG MG 70 MG valACYclovi valACYclovi No 1{table QD valACYclov r HCl 500 r HCl 500 t_as_ne ir HCl 500 MG MG eded} MG Ondansetron Ondansetron No 1{table QD Ondansetro HCl 4 MG HCl 4 MG t_as_ne n HCl 4 MG eded} Aimovig 140 Aimovig 140 No Aimovig MG/ML MG/ML 140 MG/ML Maxalt 10 Maxalt 10 No QD Maxalt 10 MG MG MG Diclofenac Diclofenac No 1{table Diclofenac Sodium 75 Sodium 75 t} Sodium 75 MG MG MG SUMAtriptan SUMAtriptan No SUMAtripta Succinate Succinate n Succinate Alendronate Alendronate No QD Alendronat Sodium 70 Sodium 70 e Sodium MG MG 70 MG valACYclovi valACYclovi No 1{table QD valACYclov r HCl 500 r HCl 500 t_as_ne ir HCl 500 MG MG eded} MG Ondansetron Ondansetron No 1{table QD Ondansetro HCl 4 MG HCl 4 MG t_as_ne n HCl 4 MG eded} Aimovig 140 Aimovig 140 No Aimovig MG/ML MG/ML 140 MG/ML Maxalt 10 Maxalt 10 No QD Maxalt 10 MG MG MG Diclofenac Diclofenac No 1{table Diclofenac Sodium 75 Sodium 75 t} Sodium 75 MG MG MG SUMAtriptan SUMAtriptan No SUMAtripta Succinate Succinate n Succinate Maxalt 10 Maxalt 10 No QD Maxalt 10 MG MG MG Aimovig 140 Aimovig 140 No Aimovig MG/ML MG/ML 140 MG/ML Alendronate Alendronate No QD Alendronat Sodium 70 Sodium 70 e Sodium MG MG 70 MG Diclofenac Diclofenac No 1{table Diclofenac Sodium 75 Sodium 75 t} Sodium 75 MG MG MG carBAMazepi carBAMazepi No 1{table BID carBAMazep ne 200 MG ne 200 MG t} ine 200 MG Ondansetron Ondansetron No 1{table QD Ondansetro HCl 4 MG HCl 4 MG t_as_ne n HCl 4 MG eded} valACYclovi valACYclovi No 1{table QD valACYclov r HCl 500 r HCl 500 t_as_ne ir HCl 500 MG MG eded} MG SUMAtriptan SUMAtriptan No SUMAtripta Succinate Succinate n Succinate Maxalt 10 Maxalt 10 No QD Maxalt 10 MG MG MG Aimovig 140 Aimovig 140 No Aimovig MG/ML MG/ML 140 MG/ML Alendronate Alendronate No QD Alendronat Sodium 70 Sodium 70 e Sodium MG MG 70 MG Diclofenac Diclofenac No 1{table Diclofenac Sodium 75 Sodium 75 t} Sodium 75 MG MG MG carBAMazepi carBAMazepi No 1{table BID carBAMazep ne 200 MG ne 200 MG t} ine 200 MG Ondansetron Ondansetron No 1{table QD Ondansetro HCl 4 MG HCl 4 MG t_as_ne n HCl 4 MG eded} valACYclovi valACYclovi No 1{table QD valACYclov r HCl 500 r HCl 500 t_as_ne ir HCl 500 MG MG eded} MG SUMAtriptan SUMAtriptan No SUMAtripta Succinate Succinate n Succinate Diclofenac Diclofenac No 1{table Diclofenac Sodium 75 Sodium 75 t} Sodium 75 MG MG MG Alendronate Alendronate No QD Alendronat Sodium 70 Sodium 70 e Sodium MG MG 70 MG valACYclovi valACYclovi No 1{table QD valACYclov r HCl 500 r HCl 500 t_as_ne ir HCl 500 MG MG eded} MG SUMAtriptan SUMAtriptan No SUMAtripta Succinate Succinate n Succinate Maxalt 10 Maxalt 10 No QD Maxalt 10 MG MG MG Ondansetron Ondansetron No 1{table QD Ondansetro HCl 4 MG HCl 4 MG t_as_ne n HCl 4 MG eded} carBAMazepi carBAMazepi No 1{table BID carBAMazep ne 200 MG ne 200 MG t} ine 200 MG Aimovig 140 Aimovig 140 No Aimovig MG/ML MG/ML 140 MG/ML valACYclovi valACYclovi No 1{table QD valACYclov r HCl 500 r HCl 500 t_as_ne ir HCl 500 MG MG eded} MG SUMAtriptan SUMAtriptan No SUMAtripta Succinate Succinate n Succinate Maxalt 10 Maxalt 10 No QD Maxalt 10 MG MG MG Aimovig 140 Aimovig 140 No Aimovig MG/ML MG/ML 140 MG/ML Alendronate Alendronate No QD Alendronat Sodium 70 Sodium 70 e Sodium MG MG 70 MG Ondansetron Ondansetron No 1{table QD Ondansetro HCl 4 MG HCl 4 MG t_as_ne n HCl 4 MG eded} Diclofenac Diclofenac No 1{table Diclofenac Sodium 75 Sodium 75 t} Sodium 75 MG MG MG carBAMazepi carBAMazepi No 1{table BID carBAMazep ne 200 MG ne 200 MG t} ine 200 MG Ondansetron Ondansetron No 1{table QD Ondansetro HCl 4 MG HCl 4 MG t_as_ne n HCl 4 MG eded} Alendronate Alendronate No QD Alendronat Sodium 70 Sodium 70 e Sodium MG MG 70 MG Gabapentin Gabapentin No BID Gabapentin 300 MG 300 MG 300 MG carBAMazepi carBAMazepi No 1{table BID carBAMazep ne 200 MG ne 200 MG t} ine 200 MG Maxalt 10 Maxalt 10 No QD Maxalt 10 MG MG MG valACYclovi valACYclovi No 1{table QD valACYclov r HCl 500 r HCl 500 t_as_ne ir HCl 500 MG MG eded} MG SUMAtriptan SUMAtriptan No SUMAtripta Succinate Succinate n Succinate Aimovig 140 Aimovig 140 No Aimovig MG/ML MG/ML 140 MG/ML Diclofenac Diclofenac No 1{table Diclofenac Sodium 75 Sodium 75 t} Sodium 75 MG MG MG Alendronate Alendronate No QD Alendronat Sodium 70 Sodium 70 e Sodium MG MG 70 MG Gabapentin Gabapentin No BID Gabapentin 300 MG 300 MG 300 MG valACYclovi valACYclovi No 1{table QD valACYclov r HCl 500 r HCl 500 t_as_ne ir HCl 500 MG MG eded} MG Albuterol Albuterol No 2{puff_ 6xD Albuterol Sulfate HFA Sulfate HFA as_need Sulfate 108 (90 108 (90 ed} HFA 108 Base) Base) (90 Base) MCG/ACT MCG/ACT MCG/ACT Ondansetron Ondansetron No 1{table QD Ondansetro HCl 4 MG HCl 4 MG t_as_ne n HCl 4 MG eded} Benzonatate Benzonatate No 1{capsu TID Benzonatat 200 MG 200 MG le} e 200 MG carBAMazepi carBAMazepi No 1{table BID carBAMazep ne 200 MG ne 200 MG t} ine 200 MG Diclofenac Diclofenac No 1{table Diclofenac Sodium 75 Sodium 75 t} Sodium 75 MG MG MG Maxalt 10 Maxalt 10 No QD Maxalt 10 MG MG MG SUMAtriptan SUMAtriptan No SUMAtripta Succinate Succinate n Succinate predniSONE predniSONE No QD predniSONE 10 MG 10 MG 10 MG Aimovig 140 Aimovig 140 No Aimovig MG/ML MG/ML 140 MG/ML Azithromyci Azithromyci No QD Azithromyc n 250 MG n 250 MG in 250 MG Gabapentin Gabapentin No BID Gabapentin 300 MG 300 MG 300 MG valACYclovi valACYclovi No 1{table QD valACYclov r HCl 500 r HCl 500 t_as_ne ir HCl 500 MG MG eded} MG Albuterol Albuterol No 2{puff_ 6xD Albuterol Sulfate HFA Sulfate HFA as_need Sulfate 108 (90 108 (90 ed} HFA 108 Base) Base) (90 Base) MCG/ACT MCG/ACT MCG/ACT Ondansetron Ondansetron No 1{table QD Ondansetro HCl 4 MG HCl 4 MG t_as_ne n HCl 4 MG eded} Benzonatate Benzonatate No 1{capsu TID Benzonatat 200 MG 200 MG le} e 200 MG SUMAtriptan SUMAtriptan No SUMAtripta Succinate Succinate n Succinate carBAMazepi carBAMazepi No 1{table BID carBAMazep ne 200 MG ne 200 MG t} ine 200 MG Diclofenac Diclofenac No 1{table Diclofenac Sodium 75 Sodium 75 t} Sodium 75 MG MG MG Azithromyci Azithromyci No QD Azithromyc n 250 MG n 250 MG in 250 MG Maxalt 10 Maxalt 10 No QD Maxalt 10 MG MG MG predniSONE predniSONE No QD predniSONE 10 MG 10 MG 10 MG Aimovig 140 Aimovig 140 No Aimovig MG/ML MG/ML 140 MG/ML Alendronate Alendronate No QD Alendronat Sodium 70 Sodium 70 e Sodium MG MG 70 MG SUMAtriptan SUMAtriptan No SUMAtripta Succinate Succinate n Succinate Aimovig 140 Aimovig 140 No Aimovig MG/ML MG/ML 140 MG/ML Gabapentin Gabapentin No BID Gabapentin 300 MG 300 MG 300 MG Maxalt 10 Maxalt 10 No QD Maxalt 10 MG MG MG Ondansetron Ondansetron No 1{table QD Ondansetro HCl 4 MG HCl 4 MG t_as_ne n HCl 4 MG eded} Diclofenac Diclofenac No 1{table Diclofenac Sodium 75 Sodium 75 t} Sodium 75 MG MG MG carBAMazepi carBAMazepi No 1{table BID carBAMazep ne 200 MG ne 200 MG t} ine 200 MG Alendronate Alendronate No QD Alendronat Sodium 70 Sodium 70 e Sodium MG MG 70 MG valACYclovi valACYclovi No 1{table QD valACYclov r HCl 500 r HCl 500 t_as_ne ir HCl 500 MG MG eded} MG SUMAtriptan SUMAtriptan No SUMAtripta Succinate Succinate n Succinate Aimovig 140 Aimovig 140 No Aimovig MG/ML MG/ML 140 MG/ML Gabapentin Gabapentin No BID Gabapentin 300 MG 300 MG 300 MG Maxalt 10 Maxalt 10 No QD Maxalt 10 MG MG MG Ondansetron Ondansetron No 1{table QD Ondansetro HCl 4 MG HCl 4 MG t_as_ne n HCl 4 MG eded} Diclofenac Diclofenac No 1{table Diclofenac Sodium 75 Sodium 75 t} Sodium 75 MG MG MG carBAMazepi carBAMazepi No 1{table BID carBAMazep ne 200 MG ne 200 MG t} ine 200 MG Alendronate Alendronate No QD Alendronat Sodium 70 Sodium 70 e Sodium MG MG 70 MG valACYclovi valACYclovi No 1{table QD valACYclov r HCl 500 r HCl 500 t_as_ne ir HCl 500 MG MG eded} MG Maxalt 10 Maxalt 10 No QD Maxalt 10 MG MG MG valACYclovi valACYclovi No 1{table QD valACYclov r HCl 500 r HCl 500 t_as_ne ir HCl 500 MG MG eded} MG Diclofenac Diclofenac No 1{table Diclofenac Sodium 75 Sodium 75 t} Sodium 75 MG MG MG Aimovig 140 Aimovig 140 No Aimovig MG/ML MG/ML 140 MG/ML Alendronate Alendronate No 1{table Alendronat Sodium 70 Sodium 70 t} e Sodium MG MG 70 MG Maxalt 10 Maxalt 10 No QD Maxalt 10 MG MG MG valACYclovi valACYclovi No 1{table QD valACYclov r HCl 500 r HCl 500 t_as_ne ir HCl 500 MG MG eded} MG Diclofenac Diclofenac No 1{table Diclofenac Sodium 75 Sodium 75 t} Sodium 75 MG MG MG Aimovig 140 Aimovig 140 No Aimovig MG/ML MG/ML 140 MG/ML Alendronate Alendronate No 1{table Alendronat Sodium 70 Sodium 70 t} e Sodium MG MG 70 MG Aimovig 140 Aimovig 140 No Aimovig MG/ML MG/ML 140 MG/ML valACYclovi valACYclovi No 1{table QD valACYclov r HCl 500 r HCl 500 t_as_ne ir HCl 500 MG MG eded} MG Alendronate Alendronate No 1{table Alendronat Sodium 70 Sodium 70 t} e Sodium MG MG 70 MG Maxalt 10 Maxalt 10 No QD Maxalt 10 MG MG MG Diclofenac Diclofenac No 1{table Diclofenac Sodium 75 Sodium 75 t} Sodium 75 MG MG MG Aimovig 140 Aimovig 140 No Aimovig MG/ML MG/ML 140 MG/ML Maxalt 10 Maxalt 10 No QD Maxalt 10 MG MG MG Alendronate Alendronate No 1{table Alendronat Sodium 70 Sodium 70 t} e Sodium MG MG 70 MG Diclofenac Diclofenac No 1{table Diclofenac Sodium 75 Sodium 75 t} Sodium 75 MG MG MG valACYclovi valACYclovi No 1{table QD valACYclov r HCl 500 r HCl 500 t_as_ne ir HCl 500 MG MG eded} MG valACYclovi valACYclovi No 1{table QD valACYclov r HCl 500 r HCl 500 t_as_ne ir HCl 500 MG MG eded} MG Maxalt 10 Maxalt 10 No QD Maxalt 10 MG MG MG Diclofenac Diclofenac No 1{table Diclofenac Sodium 75 Sodium 75 t} Sodium 75 MG MG MG Aimovig 140 Aimovig 140 No Aimovig MG/ML MG/ML 140 MG/ML Alendronate Alendronate No 1{table Alendronat Sodium 70 Sodium 70 t} e Sodium MG MG 70 MG valACYclovi valACYclovi No 1{table QD valACYclov r HCl 500 r HCl 500 t_as_ne ir HCl 500 MG MG eded} MG Maxalt 10 Maxalt 10 No QD Maxalt 10 MG MG MG Diclofenac Diclofenac No 1{table Diclofenac Sodium 75 Sodium 75 t} Sodium 75 MG MG MG Aimovig 140 Aimovig 140 No Aimovig MG/ML MG/ML 140 MG/ML Alendronate Alendronate No 1{table Alendronat Sodium 70 Sodium 70 t} e Sodium MG MG 70 MG Diclofenac Diclofenac No 1{table Diclofenac Sodium 75 Sodium 75 t} Sodium 75 MG MG MG Alendronate Alendronate No 1{table Alendronat Sodium 70 Sodium 70 t} e Sodium MG MG 70 MG Aimovig 140 Aimovig 140 No Aimovig MG/ML MG/ML 140 MG/ML valACYclovi valACYclovi No 1{table QD valACYclov r HCl 500 r HCl 500 t_as_ne ir HCl 500 MG MG eded} MG Maxalt 10 Maxalt 10 No QD Maxalt 10 MG MG MG Diclofenac Diclofenac No 1{table Diclofenac Sodium 75 Sodium 75 t} Sodium 75 MG MG MG Maxalt 10 Maxalt 10 No QD Maxalt 10 MG MG MG valACYclovi valACYclovi No 1{table QD valACYclov r HCl 500 r HCl 500 t_as_ne ir HCl 500 MG MG eded} MG Aimovig 140 Aimovig 140 No Aimovig MG/ML MG/ML 140 MG/ML Alendronate Alendronate No 1{table Alendronat Sodium 70 Sodium 70 t} e Sodium MG MG 70 MG Diclofenac Diclofenac No 1{table Diclofenac Sodium 75 Sodium 75 t} Sodium 75 MG MG MG Alendronate Alendronate No 1{table Alendronat Sodium 70 Sodium 70 t} e Sodium MG MG 70 MG Aimovig 140 Aimovig 140 No Aimovig MG/ML MG/ML 140 MG/ML valACYclovi valACYclovi No 1{table QD valACYclov r HCl 500 r HCl 500 t_as_ne ir HCl 500 MG MG eded} MG Maxalt 10 Maxalt 10 No QD Maxalt 10 MG MG MG Diclofenac Diclofenac No 1{table Diclofenac Sodium 75 Sodium 75 t} Sodium 75 MG MG MG Alendronate Alendronate No 1{table Alendronat Sodium 70 Sodium 70 t} e Sodium MG MG 70 MG Aimovig 140 Aimovig 140 No Aimovig MG/ML MG/ML 140 MG/ML valACYclovi valACYclovi No 1{table QD valACYclov r HCl 500 r HCl 500 t_as_ne ir HCl 500 MG MG eded} MG Maxalt 10 Maxalt 10 No QD Maxalt 10 MG MG MG Diclofenac Diclofenac No 1{table Diclofenac Sodium 75 Sodium 75 t} Sodium 75 MG MG MG Alendronate Alendronate No 1{table Alendronat Sodium 70 Sodium 70 t} e Sodium MG MG 70 MG Aimovig 140 Aimovig 140 No Aimovig MG/ML MG/ML 140 MG/ML valACYclovi valACYclovi No 1{table QD valACYclov r HCl 500 r HCl 500 t_as_ne ir HCl 500 MG MG eded} MG Maxalt 10 Maxalt 10 No QD Maxalt 10 MG MG MG valACYclovi valACYclovi No 1{table QD valACYclov r HCl 500 r HCl 500 t_as_ne ir HCl 500 MG MG eded} MG Maxalt 10 Maxalt 10 No QD Maxalt 10 MG MG MG Diclofenac Diclofenac No 1{table Diclofenac Sodium 75 Sodium 75 t} Sodium 75 MG MG MG Alendronate Alendronate No QD Alendronat Sodium 70 Sodium 70 e Sodium MG MG 70 MG valACYclovi valACYclovi No 1{table QD valACYclov r HCl 500 r HCl 500 t_as_ne ir HCl 500 MG MG eded} MG Maxalt 10 Maxalt 10 No QD Maxalt 10 MG MG MG Diclofenac Diclofenac No 1{table Diclofenac Sodium 75 Sodium 75 t} Sodium 75 MG MG MG Alendronate Alendronate No QD Alendronat Sodium 70 Sodium 70 e Sodium MG MG 70 MG Immunizations Ordered Filled Immunization Date Status Comments Sourc e Immunization Name Name FLUZONE HIGH DOSE FLUZONE HIGH DOSE 2022-09-10 Completed [facility] - OVER 65 OVER 65 11:08:00 [facility] FLUZONE HIGH DOSE FLUZONE HIGH DOSE 2022-09-10 Completed [facility] - OVER 65 OVER 65 11:08:00 [facility] FLUZONE HIGH DOSE FLUZONE HIGH DOSE 2022-09-10 Completed [facility] - OVER 65 OVER 65 11:08:00 [facility] TDAP 2022-05-04 [facility]pleted [facility] COVID19 [facility] COVID19 2021-09-05 [facility] Vaccine (Low Dose Vaccine (Low Dose 15:04:[address] [facility] Booster) Booster) [facility] COVID89 [facility] COVID19 2021-09-05 Completed [facility] Vaccine (Low Dose Vaccine (Low Dose 15:04:[address] [facility] Booster) Booster) [facility] COVID19 [facility] COVID19 2021-09-05 Completed [facility] Vaccine (Low Dose Vaccine (Low Dose 15:04:[address] [facility] Booster) Booster) [facility] COVID19 [facility] COVID19 2021-09-05 Completed [facility] Vaccine (Low Dose Vaccine (Low Dose 15:04:[address] [facility] Booster) Booster) [facility] COVID19 [facility] [place] 2021-09-05 Completed [facility] Vaccine (Low Dose Vaccine (Low Dose 15:04:[address] [facility] Booster) Booster) [facility] COVID19 [facility] [place]19 2021-09-05 Completed [facility] Vaccine (Low Dose Vaccine (Low Dose 15:04:[address] [facility] Booster) Booster) [facility] COVID19 [facility] [place]19 2021-09-05 Completed [facility] Vaccine (Low Dose Vaccine (Low Dose 15:04:[address] [facility] Booster) Booster) [facility] COVID19 [facility] [place]19 2021-09-05 Completed [facility] Vaccine (Low Dose Vaccine (Low Dose 15:04:[address] [facility] Booster) Booster) [facility] COVID19 [facility]05 Com[facility]ine (Low Dose Vaccine (Low Dose 15:04:[address] [facility] Booster) Booster) [facility] [address] [facility] Com[facility] Vaccine (Low Dose Vaccine (Low Dose 15:04:[address] [facility] Booster) Booster) [facility] [address] [facility]05 Com[facility] Vaccine (Low Dose Vaccine (Low Dose 15:04:[address] [facility] Booster) Booster) [facility] [address] [facility]-05 Com[facility] Vaccine (Low Dose Vaccine (Low Dose 15:04:[address] [facility] Booster) Booster) [facility] [address] [facility]-05 Com[facility] Vaccine (Low Dose Vaccine (Low Dose 15:04:[address] [facility] Booster) Booster) [facility] [address] [facility]-05 Com[facility] Vaccine (Low Dose Vaccine (Low Dose 15:04:[address] [facility] Booster) Booster) [facility] [address] [facility]-05 Com[facility] Vaccine (Low Dose Vaccine (Low Dose 15:04:[address] [facility] Booster) Booster) [facility] [address] [facility]-05 Com[facility] Vaccine (Low Dose Vaccine (Low Dose 15:04:[address] [facility] Booster) Booster) [facility] [address] [facility]-05 Com[facility] Vaccine (Low Dose Vaccine (Low Dose 15:04:[address] [facility] Booster) Booster) [facility] [address] [facility]-05 Com[facility] Vaccine (Low Dose Vaccine (Low Dose 15:04:[address] [facility] Booster) Booster) [facility] [address] [facility]-05 Com[facility] Vaccine (Low Dose Vaccine (Low Dose 15:04:[address] [facility] Booster) Booster) [facility] [address] [facility] 2021-09-05 Com[facility] Vaccine (Low Dose Vaccine (Low Dose 15:04:[address] [facility] Booster) Booster) [facility] [address] [facility] 2021-09-05 Com[facility] Vaccine (Low Dose Vaccine (Low Dose 15:04:[address] [facility] Booster) Booster) [facility] [address] [facility] 2021-09-05 Com[facility] Vaccine (Low Dose Vaccine (Low Dose 15:04:[address] [facility] Booster) Booster) [facility] [address] [facility] 2021-09-05 Com[facility] Vaccine (Low Dose Vaccine (Low Dose 15:04:[address] [facility] Booster) Booster) [facility] [address] [facility] 2021-09-05 Com[facility] Vaccine (Low Dose Vaccine (Low Dose 15:04:[address] [facility] Booster) Booster) [facility] [address] [facility] 2021-09-05 Com[facility] Vaccine (Low Dose Vaccine (Low Dose 15:04:[address] [facility] Booster) Booster) [facility] [address] [facility] 2021-09-05 Com[facility] - Vaccine (Low Dose Vaccine (Low Dose 15:04:[address] [facility] Booster) Booster) [facility] [address] [facility] 2021-09-05 Com[facility] Vaccine (Low Dose Vaccine (Low Dose 15:04:[address] [facility] Booster) Booster) [facility] [address] [facility] 2021-09-05 Com[facility] Vaccine (Low Dose Vaccine (Low Dose 15:04:[address] [facility] Booster) Booster) [facility] [address] [facility] 2021-09-05 Com[facility] - Vaccine (Low Dose Vaccine (Low Dose 15:04:[address] [facility] Booster) Booster) [facility] [address] [facility] 2021-09-05 Com[facility] - Vaccine (Low Dose Vaccine (Low Dose 15:04:00 [facility] Booster) Booster) [facility] FluAD FluAD 2021-09-02 Completed [facility] - 14:44:00 [facility] FluAD FluAD 2021-09-02 Completed [facility] - 14:44:00 [facility] FluAD FluAD 2021-09-02 Completed [facility] - 14:44:00 [facility] FluAD FluAD 2021-09-02 Completed [facility] - 14:44:00 [facility] FluAD FluAD 2021-09-02 Completed [facility] - 14:44:00 [facility] FluAD FluAD 2021-09-02 Completed [facility] - 14:44:00 [facility] FluAD FluAD 2021-09-02 Completed [facility] - 14:44:00 [facility] FluAD FluAD 2021-09-02 Completed [facility] - 14:44:00 [facility] FluAD FluAD 2021-09-02 Completed [facility] - 14:44:00 [facility] FluAD FluAD 2021-09-02 Completed [facility] - 14:44:00 [facility] FluAD FluAD 2021-09-02 Completed [facility] - 14:44:00 [facility] FluAD FluAD 2021-09-02 Completed [facility] - 14:44:00 [facility] FluAD FluAD 2021-09-02 Completed [facility] - 14:44:00 [facility] FluAD FluAD 2021-09-02 Completed [facility] - 14:44:00 [facility] FluAD FluAD 2021-09-02 Completed [facility] - 14:44:00 [facility] FluAD FluAD 2021-09-02 Completed [facility] - 14:44:00 [facility] FluAD FluAD 2021-09-02 Completed [facility] - 14:44:00 [facility] FluAD FluAD 2021-09-02 Completed [facility] - 14:44:00 [facility] FluAD FluAD 2021-09-02 Completed [facility] - 14:44:00 [facility] FluAD FluAD 2021-09-02 Completed [facility] - 14:44:00 [facility] FluAD FluAD 2021-09-02 Completed [facility] - 14:44:00 [facility] FluAD FluAD 2021-09-02 Completed [facility] - 14:44:00 [facility] FluAD FluAD 2021-09-02 Completed [facility] - 14:44:00 [facility] FluAD FluAD 2021-09-02 Completed [facility] - 14:44:00 [facility] FluAD FluAD 2021-09-02 Completed [facility] - 14:44:00 [facility] FluAD FluAD 2021-09-02 Completed [facility] - 14:44:00 [facility] FluAD FluAD 2021-09-02 Completed [facility] - 14:44:00 [facility] FluAD FluAD 2021-09-02 Completed [facility] - 14:44:00 [facility] FluAD FluAD 2021-09-02 Completed [facility] - 14:44:00 [facility] FluAD FluAD 2021-09-02 Completed [facility] - 14:44:00 [facility] FluAD FluAD 2021-09-02 Completed [facility] - 14:44:00 [facility] FluAD FluAD 2021-09-02 Completed [facility] - 14:44:00 [facility] FluAD FluAD 2021-09-02 Completed [facility] - 14:44:00 [facility] FluAD FluAD 2021-09-02 Completed [facility] - 14:44:00 [facility] FluAD FluAD 2021-09-02 Completed [facility] - 14:44:00 [facility] Pneumovax (PPSV23) Pneumovax (PPSV23) 2021-08-04 Completed [facility] - 14:00:00 [facility] Pneumovax (PPSV23) Pneumovax (PPSV23) 2021-08-04 Completed [facility] - 14:00:00 [facility] Pneumovax (PPSV23) Pneumovax (PPSV23) 2021-08-04 Completed [facility] - 14:00:00 [facility] Pneumovax (PPSV23) Pneumovax (PPSV23) 2021-08-04 Completed [facility] - 14:00:00 [facility] Pneumovax (PPSV23) Pneumovax (PPSV23) 2021-08-04 Completed [facility] - 14:00:00 [facility] Pneumovax (PPSV23) Pneumovax (PPSV23) 2021-08-04 Completed [facility] - 14:00:00 [facility] Pneumovax (PPSV23) Pneumovax (PPSV23) 2021-08-04 Completed [facility] - 14:00:00 [facility] Pneumovax (PPSV23) Pneumovax (PPSV23) 2021-08-04 Completed [facility] - 14:00:00 [facility] Pneumovax (PPSV23) Pneumovax (PPSV23) 2021-08-04 Completed [facility] - 14:00:00 [facility] Pneumovax (PPSV23) Pneumovax (PPSV23) 2021-08-04 Completed [facility] - 14:00:00 [facility] Pneumovax (PPSV23) Pneumovax (PPSV23) 2021-08-04 Completed [facility] - 14:00:00 [facility] Pneumovax (PPSV23) Pneumovax (PPSV23) 2021-08-04 Completed [facility] - 14:00:00 [facility] Pneumovax (PPSV23) Pneumovax (PPSV23) 2021-08-04 Completed [facility] - 14:00:00 [facility] Pneumovax (PPSV23) Pneumovax (PPSV23) 2021-08-04 Completed [facility] - 14:00:00 [facility] Pneumovax (PPSV23) Pneumovax (PPSV23) 2021-08-04 Completed [facility] - 14:00:00 [facility] Pneumovax (PPSV23) Pneumovax (PPSV23) 2021-08-04 Completed [facility] - 14:00:00 [facility] Pneumovax (PPSV23) Pneumovax (PPSV23) 2021-08-04 Completed [facility] - 14:00:00 [facility] Pneumovax (PPSV23) Pneumovax (PPSV23) 2021-08-04 Completed [facility] - 14:00:00 [facility] Pneumovax (PPSV23) Pneumovax (PPSV23) 2021-08-04 Completed [facility] - 14:00:00 [facility] Pneumovax (PPSV23) Pneumovax (PPSV23) 2021-08-04 Completed [facility] - 14:00:00 [facility] Pneumovax (PPSV23) Pneumovax (PPSV23) 2021-08-04 Completed [facility] - 14:00:00 [facility] Pneumovax (PPSV23) Pneumovax (PPSV23) 2021-08-04 Completed [facility] - 14:00:00 [facility] Pneumovax (PPSV23) Pneumovax (PPSV23) 2021-08-04 Completed [facility] - 14:00:00 [facility] Pneumovax (PPSV23) Pneumovax (PPSV23) 2021-08-04 Completed [facility] - 14:00:00 [facility] Pneumovax (PPSV23) Pneumovax (PPSV23) 2021-08-04 Completed [facility] - 14:00:00 [facility] Pneumovax (PPSV23) Pneumovax (PPSV23) 2021-08-04 Completed [facility] - 14:00:00 [facility] Pneumovax (PPSV23) Pneumovax (PPSV23) 2021-08-04 Completed [facility] - 14:00:00 [facility] Pneumovax (PPSV23) Pneumovax (PPSV23) 2021-08-04 Completed [facility] - 14:00:00 [facility] Pneumovax (PPSV23) Pneumovax (PPSV23) 2021-08-04 Completed [facility] - 14:00:00 [facility] Pneumovax (PPSV23) Pneumovax (PPSV23) 2021-08-04 Completed [facility] - 14:00:00 [facility] Pneumovax (PPSV23) Pneumovax (PPSV23) 2021-08-04 Completed [facility] - 14:00:00 [facility] Pneumovax (PPSV23) Pneumovax (PPSV23) 2021-08-04 Completed [facility] - 14:00:00 [facility] Pneumovax (PPSV23) Pneumovax (PPSV23) 2021-08-04 Completed [facility] - 14:00:00 [facility] Pneumovax (PPSV23) Pneumovax (PPSV23) 2021-08-04 Completed [facility] - 14:00:00 [facility] Pneumovax (PPSV23) Pneumovax (PPSV23) 2021-08-04 Completed [facility] - 14:00:00 [facility] Pneumovax (PPSV23) Pneumovax (PPSV23) 2021-08-04 Completed [facility] - 14:00:00 [facility] Pneumovax (PPSV23) Pneumovax (PPSV23) 2021-08-04 Completed [facility] - 14:00:00 [facility] Pneumovax (PPSV23) Pneumovax (PPSV23) 2021-08-04 Completed [facility] - 14:00:00 [facility] Pneumovax (PPSV23) Pneumovax (PPSV23) 2021-08-04 Completed [facility] - 14:00:00 [facility] Pneumovax (PPSV23) Pneumovax (PPSV23) 2021-08-04 Completed [facility] - 14:00:00 [facility] Pneumovax (PPSV23) Pneumovax (PPSV23) 2021-08-04 Completed [facility] - 14:00:00 [facility] Pneumovax (PPSV23) Pneumovax (PPSV23) 2021-08-04 Completed [facility] - 14:00:00 [facility] Pneumovax (PPSV23) Pneumovax (PPSV23) 2021-08-04 Completed [facility] - 14:00:00 [facility] Pneumovax (PPSV23) Pneumovax (PPSV23) 2021-08-04 Completed [facility] - 14:00:00 [facility] Pneumovax (PPSV23) Pneumovax (PPSV23) 2021-08-04 Completed [facility] - 14:00:00 [facility] Pneumovax (PPSV23) Pneumovax (PPSV23) 2021-08-04 Completed [facility] - 14:00:00 [facility] Moderna COVID-19 Moderna COVID-19 2021-01-11 Completed [facility] Vaccine Vaccine 14:16:00 [facility] Moderna COVID-19 Moderna COVID-19 2021-01-11 [facility] 14[facility]16:00 [facility] Moderna COVID-19 Moderna COVID-19 2021-01-11 Com[facility] Vacc[facility] Vaccine 14:16:00 [facility] Moderna COVID-19 Moderna COVID-19 2021-01-11 Completed [facility] Vaccine Vaccine 14:16:00 [facility] Moderna COVID-19 Moderna COVID-19 2021-01-11 Completed [facility] Vaccine Vaccine 14:16:00 [facility] Moderna COVID-19 Moderna COVID-19 2021-01-11 Completed [facility] Vaccine Vaccine 14:16:00 [facility] Moderna COVID-19 Moderna COVID-19 2021-01-11 Completed [facility] Vacc[facility] Vaccine 14:16:00 [facility] Moderna COVID-19 Moderna COVID-19 2021-01-11 Completed [facility] Vaccine Vaccine 14:16:00 [facility] Moderna COVID-19 Moderna COVID-19 2021-01-11 Completed [facility] Vaccine Vaccine 14:16:00 [facility] Moderna COVID-19 Moderna COVID-19 2021-01-11 Completed [facility] Vaccine Vaccine 14:16:00 [facility] Moderna COVID-19 Moderna COVID-19 2021-01-11 Completed [facility] Vaccine Vaccine 14:16:00 [facility] Moderna COVID-19 Moderna COVID-19 2021-01-11 Completed [facility] Vaccine Vaccine 14:16:00 [facility] Moderna COVID-19 Moderna COVID-19 2021-01-11 Completed [facility] Vaccine Vaccine 14:16:00 [facility] Moderna COVID-19 Moderna COVID-19 2021-01-11 Completed [facility] Vaccine Vaccine 14:16:00 [facility] Moderna COVID-19 Moderna COVID-19 2021-01-11 Completed [facility] Vaccine Vaccine 14:16:00 [facility] Moderna COVID-19 Moderna COVID-19 2021-01-11 Completed [facility] Vaccine Vaccine 14:16:00 [facility] Moderna COVID-19 Moderna COVID-19 2021-01-11 Completed [facility] Vaccine Vaccine 14:16:00 [facility] Moderna COVID-19 Moderna COVID-19 2021-01-11 Completed [facility] Vaccine Vaccine 14:16:00 [facility] Moderna COVID-19 Moderna COVID-19 2021-01-11 Completed [facility] Vaccine Vaccine 14:16:00 [facility] Moderna COVID-19 Moderna COVID-19 2021-01-11 Completed [facility] Vaccine Vaccine 14:16:00 [facility] Moderna COVID-19 Moderna COVID-19 2021-01-11 Completed [facility] Vaccine Vaccine 14:16:00 [facility] Moderna COVID-19 Moderna COVID-19 2021-01-11 Completed [facility] Vaccine Vaccine 14:16:00 [facility] Moderna COVID-19 Moderna COVID-19 2021-01-11 Completed [facility] Vaccine Vaccine 14:16:00 [facility] Moderna COVID-19 Moderna COVID-19 2021-01-11 Completed [facility] Vaccine Vaccine 14:16:00 [facility] Moderna COVID-19 Moderna COVID-19 2021-01-11 Completed [facility] Vaccine Vaccine 14:16:00 [facility] Moderna COVID-19 Moderna COVID-19 2021-01-11 Completed [facility] Vaccine Vaccine 14:16:00 [facility] Moderna COVID-19 Moderna COVID-19 2021-01-11 Completed [facility] Vaccine Vaccine 14:16:00 [facility] Moderna COVID-19 Moderna COVID-19 2021-01-11 Completed [facility] Vaccine Vaccine 14:16:00 [facility] Moderna COVID-19 Moderna COVID-19 2021-01-11 Completed [facility] Vaccine Vaccine 14:16:00 [facility] Moderna COVID-19 Moderna COVID-19 2021-01-11 Completed [facility] Vaccine Vaccine 14:16:00 [facility] Moderna COVID-19 Moderna COVID-19 2021-01-11 Completed [facility] Vaccine Vaccine 14:16:00 [facility] Moderna COVID-19 Moderna COVID-19 2021-01-11 Completed [facility] Vaccine Vaccine 14:16:00 [facility] Moderna COVID-19 Moderna COVID-19 2021-01-11 Completed [facility] Vaccine Vaccine 14:16:00 [facility] Moderna COVID-19 Moderna COVID-19 2021-01-11 Completed [facility] Vaccine Vaccine 14:16:00 [facility] Moderna COVID-19 Moderna COVID-19 2021-01-11 Completed [facility] Vaccine Vaccine 14:16:00 [facility] Moderna COVID-19 Moderna COVID-19 2021-01-11 Completed [facility] Vaccine Vaccine 14:16:00 [facility] Moderna COVID-19 Moderna COVID-19 2021-01-11 Completed [facility] Vaccine Vaccine 14:16:00 [facility] Moderna COVID-19 Moderna COVID-19 2021-01-11 Completed [facility] Vaccine Vaccine 14:16:00 [facility] Moderna COVID-19 Moderna COVID-19 2021-01-11 Completed [facility] Vaccine Vaccine 14:16:00 [facility] Moderna COVID-19 Moderna COVID-19 2021-01-11 Completed [facility] Vaccine Vaccine 14:16:00 [facility] Moderna COVID-19 Moderna COVID-19 2021-01-11 Completed [facility] Vaccine Vaccine 14:16:00 [facility] Moderna COVID-19 Moderna COVID-19 2021-01-11 Completed [facility] Vaccine Vaccine 14:16:00 [facility] Moderna COVID-19 Moderna COVID-19 2021-01-11 Completed [facility] Vaccine Vaccine 14:16:00 [facility] Moderna COVID-19 Moderna COVID-19 2021-01-11 Completed [facility] Vaccine Vaccine 14:16:00 [facility] Moderna COVID-19 Moderna COVID-19 2021-01-11 Completed [facility] Vaccine Vaccine 14:16:00 [facility] Moderna COVID-19 Moderna COVID-19 2021-01-11 Completed [facility] Vaccine Vaccine 14:16:00 [facility] SARS-COV-2 COVID-19 2021-01-11 Completed [facility] VACCINE 00:00:00 [facility] SARS-COV-2 COVID-19 2021-01-11 Completed [facility] VACCINE 00:00:00 [facility] SARS-COV-2 COVID-19 2021-01-11 Completed [facility] VACCINE 00:00:00 [facility] SARS-COV-2 COVID-19 2021-01-11 Completed [facility] VACCINE 00:00:00 [facility] SARS-COV-2 COVID-19 2021-01-11 Completed [facility] VACCINE 00:00:00 [facility] SARS-COV-2 COVID-19 2021-01-11 Completed [facility] VACCINE 00:00:00 [facility] SARS-COV-2 COVID-19 2021-01-11 Completed [facility] VACCINE 00:00:00 [facility] SARS-COV-2 COVID-19 2021-01-11 Completed [facility] VACCINE 00:00:00 [facility] SARS-COV-2 COVID-19 2021-01-11 Completed [facility] VACCINE 00:00:00 [facility] SARS-COV-2 COVID-19 2021-01-11 Completed [facility] VACCINE 00:00:00 [facility] SARS-COV-2 COVID-19 2021-01-11 Completed [facility] VACCINE 00:00:00 [facility] SARS-COV-2 COVID-19 2021-01-11 Completed [facility] VACCINE 00:00:00 [facility] SARS-COV-2 COVID-19 2021-01-11 Completed [facility] VACCINE 00:00:00 [facility] SARS-COV-2 COVID-19 2021-01-11 Completed [facility] VACCINE 00:00:00 [facility] SARS-COV-2 COVID-19 2021-01-11 Completed [facility] VACCINE 00:00:00 [facility] SARS-COV-2 COVID-19 2021-01-11 Completed [facility] VACCINE 00:00:00 [facility] Moderna COVID-19 Moderna COVID-19 2020-12-14 Completed [facility] 14:15:00 [facility] Moderna COVID-19 Moderna COVID-19 2020-12-14 Completed [facility] Vaccine Vaccine 14:15:00 [facility] Moderna COVID-19 Moderna COVID-19 2020-12-14 Completed [facility] Vaccine Vaccine 14:15:00 [facility] Moderna COVID-19 Moderna COVID-19 2020-12-14 Completed [facility] Vaccine Vaccine 14:15:00 [facility] Moderna COVID-19 Moderna COVID-19 2020-12-14 Completed [facility] Vaccine Vaccine 14:15:00 [facility] Moderna COVID-19 Moderna COVID-19 2020-12-14 Completed [facility] Vaccine Vaccine 14:15:00 [facility] Moderna COVID-19 Moderna COVID-19 2020-12-14 Completed [facility] Vaccine Vaccine 14:15:00 [facility] Moderna COVID-19 Moderna COVID-19 2020-12-14 Completed [facility] Vaccine Vaccine 14:15:00 [facility] Moderna COVID-19 Moderna COVID-19 2020-12-14 Completed [facility] Vaccine Vaccine 14:15:00 [facility] Moderna COVID-19 Moderna COVID-19 2020-12-14 Completed [facility] Vaccine Vaccine 14:15:00 [facility] Moderna COVID-19 Moderna COVID-19 2020-12-14 Completed [facility] Vaccine Vaccine 14:15:00 [facility] Moderna COVID-19 Moderna COVID-19 2020-12-14 Completed [facility] Vaccine Vaccine 14:15:00 [facility] Moderna COVID-19 Moderna COVID-19 2020-12-14 Completed [facility] Vaccine Vaccine 14:15:00 [facility] Moderna COVID-19 Moderna COVID-19 2020-12-14 Completed [facility] Vaccine Vaccine 14:15:00 [facility] Moderna COVID-19 Moderna COVID-19 2020-12-14 Completed [facility] Vaccine Vaccine 14:15:00 [facility] Moderna COVID-19 Moderna COVID-19 2020-12-14 Completed [facility] Vaccine Vaccine 14:15:00 [facility] Moderna COVID-19 Moderna COVID-19 2020-12-14 Completed [facility] Vaccine Vaccine 14:15:00 [facility] Moderna COVID-19 Moderna COVID-19 2020-12-14 Completed [facility] Vaccine Vaccine 14:15:00 [facility] Moderna COVID-19 Moderna COVID-19 2020-12-14 Completed [facility] Vaccine Vaccine 14:15:00 [facility] Moderna COVID-19 Moderna COVID-19 2020-12-14 Completed [facility] Vaccine Vaccine 14:15:00 [facility] Moderna COVID-19 Moderna COVID-19 2020-12-14 Completed [facility] Vaccine Vaccine 14:15:00 [facility] Moderna COVID-19 Moderna COVID-19 2020-12-14 Completed [facility] Vaccine Vaccine 14:15:00 [facility] Moderna COVID-19 Moderna COVID-19 2020-12-14 Completed [facility] Vaccine Vaccine 14:15:00 [facility] Moderna COVID-19 Moderna COVID-19 2020-12-14 Completed [facility] Vaccine Vaccine 14:15:00 [facility] Moderna COVID-19 Moderna COVID-19 2020-12-14 Completed [facility] Vaccine Vaccine 14:15:00 [facility] Moderna COVID-19 Moderna COVID-19 2020-12-14 Completed [facility] Vaccine Vaccine 14:15:00 [facility] Moderna COVID-19 Moderna COVID-19 2020-12-14 Completed [facility] Vaccine Vaccine 14:15:00 [facility] Moderna COVID-19 Moderna COVID-19 2020-12-14 Completed [facility] Vaccine Vaccine 14:15:00 [facility] Moderna COVID-19 Moderna COVID-19 2020-12-14 Completed [facility] Vaccine Vaccine 14:15:00 [facility] Moderna COVID-19 Moderna COVID-19 2020-12-14 Completed [facility] Vaccine Vaccine 14:15:00 [facility] Moderna COVID-19 Moderna COVID-19 2020-12-14 Completed [facility] Vaccine Vaccine 14:15:00 [facility] Moderna COVID-19 Moderna COVID-19 2020-12-14 Completed [facility] Vaccine Vaccine 14:15:00 [facility] Moderna COVID-19 Moderna COVID-19 2020-12-14 Completed [facility] Vaccine Vaccine 14:15:00 [facility] Moderna COVID-19 Moderna COVID-19 2020-12-14 Completed [facility] Vaccine Vaccine 14:15:00 [facility] Moderna COVID-19 Moderna COVID-19 2020-12-14 Completed [facility] Vaccine Vaccine 14:15:00 [facility] Moderna COVID-19 Moderna COVID-19 2020-12-14 Completed [facility] Vaccine Vaccine 14:15:00 [facility] Moderna COVID-19 Moderna COVID-19 2020-12-14 Completed [facility] Vaccine Vaccine 14:15:00 [facility] Moderna COVID-19 Moderna COVID-19 2020-12-14 Completed [facility] Vaccine Vaccine 14:15:00 [facility] Moderna COVID-19 Moderna COVID-19 2020-12-14 Completed [facility] Vaccine Vaccine 14:15:00 [facility] Moderna COVID-19 Moderna COVID-19 2020-12-14 Completed [facility] Vaccine Vaccine 14:15:00 [facility] Moderna COVID-19 Moderna COVID-19 2020-12-14 Completed [facility] Vaccine Vaccine 14:15:00 [facility] Moderna COVID-19 Moderna COVID-19 2020-12-14 Completed [facility] Vaccine Vaccine 14:15:00 [facility] Moderna COVID-19 Moderna COVID-19 2020-12-14 Completed [facility] Vaccine Vaccine 14:15:00 [facility] Moderna COVID-19 Moderna COVID-19 2020-12-14 Completed [facility] Vaccine Vaccine 14:15:00 [facility] Moderna COVID-19 Moderna COVID-19 2020-12-14 Completed [facility] Vaccine Vaccine 14:15:00 [facility] Moderna COVID-19 Moderna COVID-19 2020-12-14 Completed [facility] Vaccine Vaccine 14:15:00 [facility] SARS-COV-2 COVID-19 2020-12-14 Completed [facility] VACCINE 00[facility]00:[address] [facility] SARS-COV-2 COVID-19 2020-12-14 Completed [facility] VACCINE 00:00:[address] [facility] SARS-COV-2 COVID-19 2020-12-14 Completed [facility] VACCINE 00:00:[address] [facility] SARS-COV-2 COVID-19 2020-12-14 Completed [facility] VACCINE 00:00:[address] [facility] SARS-COV-2 COVID-19 2020-12-14 Completed [facility] VACCINE 00:00:[address] [facility] SARS-COV-2 COVID-19 2020-12-14 Completed [facility] VACCINE 00:00:[address] [facility] SARS-COV-2 COVID-19 2020-12-14 Completed [facility] VACCINE 00:00:[address] [facility] SARS-COV-2 COVID-19 2020-12-14 Completed [facility] VACCINE 00:00:[address] [facility] SARS-COV-2 COVID-19 2020-12-14 Completed [facility] VACCINE 00:00:[address] [facility] SARS-COV-2 COVID-19 2020-12-14 Completed [facility] VACCINE 00:00:[address] [facility] SARS-COV-2 COVID-19 2020-12-14 Completed [facility] VACCINE 00:00:[address] [facility] SARS-COV-2 COVID-19 2020-12-14 Completed [facility] VACCINE 00:00:[address] [facility] SARS-COV-2 COVID-19 2020-12-14 Completed [facility] VACCINE 00:00:00 [facility] SARS-COV-2 COVID-19 2020-12-14 Completed [facility] MODERNA VACCINE 00:00:00 [facility] SARS-COV-2 COVID-19 2020-12-14 Completed [facility]ERNA VACCINE 00:00:00 [facility] SARS-COV-2 COVID-19 2020-12-14 Completed [facility] VACCINE 00:00:00 [facility] Shingrix Shingrix 2019-07-09 Com[facility] 14:16:00 [facility] Fluzone Fluzone 2019-07-09 Completed [facility] - 14:16:00 [facility] Shingrix Shingrix 2019-07-09 Completed [facility] - 14:16:00 [facility] Fluzone Fluzone 2019-07-09 Completed [facility] - 14:16:00 [facility] Shingrix Shingrix 2019-07-09 Completed [facility] - 14:16:00 [facility] Fluzone Fluzone 2019-07-09 Completed [facility] - 14:16:00 [facility] Shingrix Shingrix 2019-07-09 Completed [facility] - 14:16:00 [facility] Fluzone Fluzone 2019-07-09 Completed [facility] - 14:16:00 [facility] Shingrix Shingrix 2019-07-09 Completed [facility] - 14:16:00 [facility] Fluzone Fluzone 2019-07-09 Completed [facility] - 14:16:00 [facility] Shingrix Shingrix 2019-07-09 Completed [facility] - 14:16:00 [facility] Fluzone Fluzone 2019-07-09 Completed [facility] - 14:16:00 [facility] Shingrix Shingrix 2019-07-09 Completed [facility] - 14:16:00 [facility] Fluzone Fluzone 2019-07-09 Completed [facility] 14:16:00 [facility] Shingrix Shingrix 2019-07-09 Completed [facility] - 14:16:00 [facility] Fluzone Fluzone 2019-07-09 Completed [facility] - 14:16:00 [facility] Shingrix Shingrix 2019-07-09 Completed [facility] - 14:16:00 [facility] Fluzone Fluzone 2019-07-09 Completed [facility] - 14:16:00 [facility] Shingrix Shingrix 2019-07-09 Completed [facility] - 14:16:00 [facility] Fluzone Fluzone 2019-07-09 Completed [facility] - 14:16:00 [facility] Shingrix Shingrix 2019-07-09 Completed [facility] 14:16:00 [facility] Fluzone Fluzone 2019-07-09 Completed [facility] 14:16:00 [facility] Shingrix Shingrix 2019-07-09 Completed [facility] - 14:16:00 [facility] Fluzone Fluzone 2019-07-09 Completed [facility] - 14:16:00 [facility] Shingrix Shingrix 2019-07-09 Completed [facility] 14:16:00 [facility] Fluzone Fluzone 2019-07-09 Completed [facility] 14:16:00 [facility] Shingrix Shingrix 2019-07-09 Completed [facility] 14:16:00 [facility] Fluzone Fluzone 2019-07-09 Completed [facility] 14:16:00 [facility] Shingrix Shingrix 2019-07-09 Completed [facility] 14:16:00 [facility] Fluzone Fluzone 2019-07-09 Completed [facility] 14:16:00 [facility] Shingrix Shingrix 2019-07-09 Completed [facility] 14:16:00 [facility] Fluzone Fluzone 2019-07-09 Completed [facility] 14:16:00 [facility] Shingrix Shingrix 2019-07-09 Completed [facility] - 14:16:00 [facility] Fluzone Fluzone 2019-07-09 Completed [facility] 14:16:00 [facility] Shingrix Shingrix 2019-07-09 Completed [facility] 14:16:00 [facility] Fluzone Fluzone 2019-07-09 Completed [facility] 14:16:00 [facility] Shingrix Shingrix 2019-07-09 Completed [facility] 14:16:00 [facility] Fluzone Fluzone 2019-07-09 Completed [facility] 14:16:00 [facility] Shingrix Shingrix 2019-07-09 Completed [facility] 14:16:00 [facility] Fluzone Fluzone 2019-07-09 Completed [facility] 14:16:00 [facility] Shingrix Shingrix 2019-07-09 Completed [facility] 14:16:00 [facility] Fluzone Fluzone 2019-07-09 Completed [facility] 14:16:00 [facility] Shingrix Shingrix 2019-07-09 Completed [facility] 14:16:00 [facility] Fluzone Fluzone 2019-07-09 Completed [facility] 14:16:00 [facility] Shingrix Shingrix 2019-07-09 Completed [facility] 14:16:00 [facility] Fluzone Fluzone 2019-07-09 Completed [facility] 14:16:00 [facility] Shingrix Shingrix 2019-07-09 Completed [facility] 14:16:00 [facility] Fluzone Fluzone 2019-07-09 Completed [facility] 14:16:00 [facility] Shingrix Shingrix 2019-07-09 Completed [facility] 14:16:00 [facility] Fluzone Fluzone 2019-07-09 Completed [facility] 14:16:00 [facility] Shingrix Shingrix 2019-07-09 Completed [facility] 14:16:00 [facility] Fluzone Fluzone 2019-07-09 Completed [facility] 14:16:00 [facility] Shingrix Shingrix 2019-07-09 Completed [facility] 14:16:00 [facility] Fluzone Fluzone 2019-07-09 Completed [facility] 14:16:00 [facility] Shingrix Shingrix 2019-07-09 Completed [facility] 14:16:00 [facility] Fluzone Fluzone 2019-07-09 Completed [facility] 14:16:00 [facility] Shingrix Shingrix 2019-07-09 Completed [facility] - 14:16:00 [facility] Fluzone Fluzone 2019-07-09 Completed [facility] 14:16:00 [facility] Shingrix Shingrix 2019-07-09 Completed [facility] 14:16:00 [facility] Fluzone Fluzone 2019-07-09 Completed [facility] 14:16:00 [facility] Shingrix Shingrix 2019-07-09 Completed [facility] - 14:16:00 [facility] Fluzone Fluzone 2019-07-09 Completed [facility] 14:16:00 [facility] Shingrix Shingrix 2019-07-09 Completed [facility] - 14:16:00 [facility] Fluzone Fluzone 2019-07-09 Completed [facility] - 14:16:00 [facility] Shingrix Shingrix 2019-07-09 Completed [facility] - 14:16:00 [facility] Fluzone Fluzone 2019-07-09 Completed [facility] - 14:16:00 [facility] Shingrix Shingrix 2019-07-09 Completed [facility] - 14:16:00 [facility] Fluzone Fluzone 2019-07-09 Completed [facility] - 14:16:00 [facility] Shingrix Shingrix 2019-07-09 Completed [facility] 14:16:00 [facility] Fl[facility] Fluzone 2019-07-09 Completed [facility] - 14:16:00 [facility] Shingrix Shingrix 2019-07-09 Completed [facility] - 14:16:00 [facility] Fluzone Fluzone 2019-07-09 Completed [facility] 14:16:00 [facility] Shingrix Shingrix 2019-07-09 Completed [facility] - 14:16:00 [facility] Fluzone Fluzone 2019-07-09 Completed [facility] - 14:16:00 [facility] Shingrix Shingrix 2019-07-09 Completed [facility] - 14:16:00 [facility] Fluzone Fluzone 2019-07-09 Completed [facility] - 14:16:00 [facility] Shingrix Shingrix 2019-07-09 Completed [facility] - 14:16:00 [facility] Fluzone Fluzone 2019-07-09 Completed [facility] - 14:16:00 [facility] Shingrix Shingrix 2019-07-09 Completed [facility] 14:16:00 [facility] Fluzone Fluzone 2019-07-09 Completed [facility] - 14:16:00 [facility] Shingrix Shingrix 2019-07-09 Completed [facility] - 14:16:00 [facility] Fluzone Fluzone 2019-07-09 Completed [facility] 14:16:00 [facility] Shingrix Shingrix 2019-07-09 Completed [facility] - 14:16:00 [facility] Fluzone Fluzone 2019-07-09 Completed [facility] - 14:16:00 [facility] Shingrix Shingrix 2019-07-09 Completed [facility] 14:16:00 [facility] Fluzone Fluzone 2019-07-09 Completed [facility] 14:16:00 [facility] Shingrix Shingrix 2019-07-09 Completed [facility] 14:16[facility]00 [facility] Fluzone Fluzone 2019-07-09 Completed [facility] - 14:16:00 [facility] Shingrix Shingrix 2019-07-09 Completed [facility] 14:16:00 [facility] Fluzone Fluzone 2019-07-09 Completed [facility] 14:16:00 [facility] Shingrix Shingrix 2019-07-09 Completed [facility] - 14:16:00 [facility] Fluzone Fluzone 2019-07-09 Completed [facility] - 14:16:00 [facility] Vital Signs Vital Name Observation Time Observation Value Comments Source height 2022-12-11 11:20:00 63 [in_i] Common [facility] weight 2022-12-11 11:20:00 142 [lb_av] Common [facility] temperature 2022-12-11 11:20:00 96.7 [degF] Common [facility] bmi 2022-12-11 11:20:00 25.15 kg/m2 Common [facility] oximetry 2022-12-11 11:20:00 97 % Common [facility] height 2022-09-10 11:00:00 63 [in_i] Common [facility] weight 2022-09-10 11:00:00 154.3 [lb_av] [facility] temperature 2022-09-10 11:00:00 97.1 [degF] [facility] bmi 2022-09-10 11:00:00 27.33 kg/m2 [facility] oximetry 2022-09-10 11:00:00 94 % [facility] respiratory rate 2022-09-10 11:00:00 16 /min Comm on [facility] blood pressure 2022-09-10 11:00:00 128 mm[Hg] [facility] - systolic [facility] blood pressure 2022-09-10 11:00:00 73 mm[Hg] Common [facility] - diastolic [facility] height 2022-06-22 15:00:00 63 [in_i] [facility] weight 2022-06-22 15:00:00 170.7 [lb_av] [facility] temperature 2022-06-22 15:00:00 97.5 [degF] [facility] bmi 2022-06-22 15:00:00 30.23 kg/m2 [facility] oximetry 2022-06-22 15:00:00 96 % [facility] respiratory rate 2022-06-22 15:00:00 17 /min Comm on [facility] blood pressure 2022-06-22 15:00:00 133 mm[Hg] Common [facility] - systolic [facility] blood pressure 2022-06-22 15:00:00 60 mm[Hg] Common [facility] - diastolic [facility] height 2022-06-11 10:10:00 63 [in_i] Common [facility] weight 2022-06-11 10:10:00 171 [lb_av] [facility] temperature 2022-06-11 10:10:00 97.8 [degF] Common [facility] bmi 2022-06-11 10:10:00 30.29 kg/m2 [facility] oximetry 2022-06-11 10:10:00 96 % [facility] respiratory rate 2022-06-11 10:10:00 16 /min Comm on [facility] blood pressure 2022-06-11 10:10:00 136 mm[Hg] Common [facility] - systolic [facility] blood pressure 2022-06-11 10:10:00 71 mm[Hg] Common [facility] - diastolic [facility] height 2022-06-11 10:40:00 63 [in_i] Common [facility] weight 2022-06-11 10:40:00 171 [lb_av] [facility] temperature 2022-06-11 10:40:00 97.8 [degF] [facility] bmi 2022-06-11 10:40:00 30.29 kg/m2 Common [facility] oximetry 2022-06-11 10:40:00 96 % Common [facility] respiratory rate 2022-06-11 10:40:00 16 /min Comm on [facility] blood pressure 2022-06-11 10:40:00 136 mm[Hg] [facility] - systolic [facility] blood pressure 2022-06-11 10:40:00 71 mm[Hg] Common [facility] - diastolic [facility] Systolic blood 2022-05-04 20:16:00 130 mm[Hg] [facility] Diastolic blood 2022-05-04 20:16:00 76 mm[Hg] [facility] 2022-05-04 20:16:00 71 /min [facility] Body temperature 2022-05-04 20:16:00 36.61 Andreea [facility] 2022-05-04 20:16:00 19 /min [facility] Body height 2022-05-04 20:16:00 162.6 cm [facility] Body weight 2022-05-04 20:16:00 80.695 kg [facility] BMI 2022-05-04 20:16:00 30.54 kg/m2 [facility] Oxygen saturation in 2022-05-04 20:16:00 96 /min [facility] Arterial blood by [facility] Pulse oximetry Branch height 2022-04-20 15:00:00 65 [in_i] [facility] weight 2022-04-20 15:00:00 177 [lb_av] [facility] temperature 2022-04-20 15:00:00 97.6 [degF] [facility] bmi 2022-04-20 15:00:00 29.45 kg/m2 [facility] height 2022-04-09 09:20:00 65 [in_i] [facility] weight 2022-04-09 09:20:00 178.5 [lb_av] [facility] temperature 2022-04-09 09:20:00 97.3 [degF] [facility] bmi 2022-04-09 09:20:00 29.7 kg/m2 [facility] oximetry 2022-04-09 09:20:00 93 % [facility] respiratory rate 2022-04-09 09:20:00 16 /min Comm on [facility] blood pressure 2022-04-09 09:20:00 135 mm[Hg] Common [facility] - systolic [facility] blood pressure 2022-04-09 09:20:00 64 mm[Hg] Common [facility] - diastolic [facility] height 2022-03-12 10:20:00 65 [in_i] Common [facility] weight 2022-03-12 10:20:00 180.8 [lb_av] [facility] temperature 2022-03-12 10:20:00 97.2 [degF] [facility] bmi 2022-03-12 10:20:00 30.08 kg/m2 [facility] oximetry 2022-03-12 10:20:00 94 % [facility] respiratory rate 2022-03-12 10:20:00 16 /min Comm on [facility] blood pressure 2022-03-12 10:20:00 132 mm[Hg] Common [facility] systolic [facility] blood pressure 2022-03-12 10:20:00 65 mm[Hg] Common [facility] diastolic [facility] height 2021-12-03 10:10:00 65 [in_i] Common S [facility] weight 2021-12-03 10:10:00 178.9 [lb_av] [facility] temperature 2021-12-03 10:10:00 97.2 [degF] [facility] bmi 2021-12-03 10:10:00 29.77 kg/m2 [facility] oximetry 2021-12-03 10:10:00 96 % [facility] respiratory rate 2021-12-03 10:10:00 17 /min Comm on [facility] blood pressure 2021-12-03 10:10:00 128 mm[Hg] Common [facility] - systolic [facility] blood pressure 2021-12-03 10:10:00 67 mm[Hg] [facility] - diastolic [facility] height 2021-09-02 14:20:00 65 [in_i] [facility] weight 2021-09-02 14:20:00 177.1 [lb_av] [facility] temperature 2021-09-02 14:20:00 97.6 [degF] [facility] bmi 2021-09-02 14:20:00 29.47 kg/m2 [facility] oximetry 2021-09-02 14:20:00 95 % [facility] respiratory rate 2021-09-02 14:20:00 18 /min Comm [facility] - [facility] blood pressure 2021-09-02 14:20:00 126 mm[Hg] Common [facility] - systolic [facility] blood pressure 2021-09-02 14:20:00 61 mm[Hg] [facility] - diastolic [facility] height 2021-09-01 10:45:00 65 [in_i] Common [facility] weight 2021-09-01 10:45:00 176 [lb_av] Common S [facility] bmi 2021-09-01 10:45:00 29.28 kg/m2 Common [facility] - [facility] blood pressure 2021-09-01 10:45:00 122 mm[Hg] [facility] - systolic [facility] blood pressure 2021-09-01 10:45:00 65 mm[Hg] [facility] - diastolic [facility] Systolic blood 2021-08-19 20:04:00 119 mm[Hg] Univer sity of pressure [facility] Diastolic blood 2021-08-19 20:04:00 65 mm[Hg] Unive rsity of pressure [facility] Heart rate 2021-08-19 20:04:00 91 /min [facility] Respiratory rate 2021-08-19 20:04:00 19 /min [facility] Body height 2021-08-19 20:04:00 165.1 cm Universi ty of [facility] Body weight 2021-08-19 20:04:00 81.375 kg Universi ty of [facility] BMI 2021-08-19 20:04:00 29.85 kg/m2 Universi ty [facility] Oxygen saturation in 2021-08-19 20:04:00 97 /min [facility] blood by [facility] Pulse oximetry Branch height 2021-08-11 14:20:00 65 [in_i] [facility] weight 2021-08-11 14:20:00 178.1 [lb_av] [facility] temperature 2021-08-11 14:20:00 98.0 [degF] [facility] bmi 2021-08-11 14:20:00 29.63 kg/m2 [facility] oximetry 2021-08-11 14:20:00 95 % [facility] respiratory rate 2021-08-11 14:20:00 18 /min Comm on [facility] blood pressure 2021-08-11 14:20:00 131 mm[Hg] [facility] - systolic [facility] blood pressure 2021-08-11 14:20:00 70 mm[Hg] Common [facility] - diastolic [facility] height 2021-08-05 09:30:00 65 [in_i] [facility] weight 2021-08-05 09:30:00 176 [lb_av] [facility] temperature 2021-08-05 09:30:00 97.3 [degF] [facility] bmi 2021-08-05 09:30:00 29.28 kg/m2 [facility] blood pressure 2021-08-05 09:30:00 134 mm[Hg] [facility] - systolic [facility] blood pressure 2021-08-05 09:30:00 84 mm[Hg] Common [facility] - diastolic [facility] height 2021-08-04 10:10:00 65 [in_i] Common S [facility] weight 2021-08-04 10:10:00 176 [lb_av] [facility] temperature 2021-08-04 10:10:00 96.7 [degF] Common S [facility] bmi 2021-08-04 10:10:00 29.28 kg/m2 Common S [facility] oximetry 2021-08-04 10:10:00 91 % [facility] respiratory rate 2021-08-04 10:10:00 18 /min Comm on [facility] blood pressure 2021-08-04 10:10:00 130 mm[Hg] Common [facility] - systolic [facility] blood pressure 2021-08-04 10:10:00 79 mm[Hg] [facility] diastolic [facility] height 2021-08-04 10:00:00 65 [in_i] [facility] weight 2021-08-04 10:00:00 176.0 [lb_av] [facility] temperature 2021-08-04 10:00:00 96.7 [degF] [facility] bmi 2021-08-04 10:00:00 29.28 kg/m2 [facility] oximetry 2021-08-04 10:00:00 91 % [facility] S [facility] respiratory rate 2021-08-04 10:00:00 18 /min Comm on [facility] blood pressure 2021-08-04 10:00:00 130 mm[Hg] [facility] systolic [facility] blood pressure 2021-08-04 10:00:00 79 mm[Hg] [facility] diastolic [facility] Procedures Procedure Date / Time Performed Performing Clinician Sourc e TDAP VACCINE, >11 2022-05-04 20:30:26 [facility] PHYSICIAN ORDERS 2021-10-20 06:01:00 Doctor Unassigned, No Leila [facility] Name Medical Branch OP CLINIC 2021-09-25 06:01:00 Doctor Unassigned, No Freid [facility] NOTES/CONSULTS Name Medical Branch Encounters Start End Encounter Admission Attending Care Care Encounter Source Date/Time Date/Time Type Type Clinicians Facility Department ID 2023-03-29 Outpatient Lo, STLMLC STLMLC [id number] Common 10:23:01 [facility] [id number] [facility] 2023-02-22 Outpatient Lo, STLMLC STLMLC [id number] Common 09:35:01 Chasidy 38921 [facility] 2023-01-20 Outpatient Lo, STLMLC STLMLC [id number] Common 09:44:01 Chasidy [id number] [facility] 2022-09-08 Outpatient Lo, STLMLC STLMLC [id number] Common 13:35:02 Chasidy 94233 [facility] 2022-07-02 Outpatient Lo, STLMLC STLMLC [id number] Common 10:57:01 Chasidy [facility] 2022-04-20 Outpatient Lo, STLMLC STLMLC [id number] Common 10:48:01 Chasidy [facility] 2021-12-03 Outpatient Lo, STLMLC STLMLC [id number] Common 14:40:00 Chasidy [facility] 2021-12-03 Outpatient Lo, STLMLC STLMLC [id number] Common 14:07:36 Chasidy [facility] 2021-12-03 Outpatient Lo, STLMLC STLMLC [id number] Common 14:05:50 Chasidy [facility] 2021-12-03 Outpatient Lo, STLMLC STLMLC [id number] Common 13:57:34 Chasidy 54313 [facility] 2021-12-03 Outpatient Lo, STLMLC STLMLC [id number] Common 13:56:33 Chasidy 66746 [facility] 2021-12-03 Outpatient Lo, STLMLC STLMLC [id number] Common 13:54:08 Chasidy 28384 [facility] 2021-12-03 Outpatient Lo, STLMLC STLMLC [id number] Common 13:53:11 Chasidy 83042 [facility] 2021-12-03 Outpatient Lo, STLMLC STLMLC [id number] Common 13:52:48 Chasidy [id number] [facility] 2021-12-03 Outpatient Lo, STLMLC STLMLC [id number] Common 13:47:00 Chasidy 99719 [facility] 2021-12-03 Outpatient Lo, STLMLC STLMLC [id number] Common 13:45:07 Chasidy 40536 [facility] 2021-12-03 Outpatient Lo, STLMLC STLMLC [id number] Common 13:38:41 Chasidy 29292 [facility] 2021-12-03 Outpatient Lo, STLMLC STLMLC [id number] Common 13:27:15 Chasidy 76595 [facility] 2021-12-03 Outpatient Lo, STLMLC STLMLC [id number] Common 13:24:27 Chasidy 59820 [facility] 2021-12-03 Outpatient Lo, STLMLC STLMLC [id number] Common 13:23:17 Chasidy 29926 [facility] 2021-09-09 Emergency [facility] [id number] Univers 03:08:59 ity [facility] 2021-09-04 Emergency [facility] [id number] Univers 18:08:01 ity [facility] 2021-09-04 Emergency [facility] [id number] Univers 13:55:09 ity [facility] 2023-02-18 2023-02-18 CAV Alanna 2.16.840. 2.16.840.1. STEWARTC [id number] [facility] 15:30:00 16:30:00 Fernández [id number] [facility] [id number] 2023-01-28 2023-01-28 [facility]patient [facility] [id number] [facility] 00:00:00 00:00:00 0323 [facility] 2023-01-28 2023-01-28 [facility] [id number] [facility] 00:00:00 00:00:00 0506 [facility] l [facility] 2022-12-11 2022-12-11 OFFICE STLMLC STLMLC [id number] Co mmon 00:00:00 00:00:00 [facility]IT [facility] ESTAB PT - CHI LEVEL 3 [facility] 2022-12-10 2022-12-10 (TEL) STLMLC STLMLC [id number] Co mmon 00:00:00 00:00:00 [facility] 2022-09-10 2022-09-10 OFFICE STLMLC STLMLC [id number] Co mmon 00:00:00 00:00:00 [facility] ESTAB PT - CHI LEVEL 4 [facility] 2022-09-09 2022-09-09 (TEL) STLMLC STLMLC [id number] Co mmon 00:00:00 00:00:00 [facility] 2022-08-31 2022-08-31 (TEL) STLMLC STLMLC [id number] Co mmon 00:00:00 00:00:00 [facility] 2022-08-06 2022-08-06 CAV Susy 2.16.840. 2.16.840.1. CLAC [id number] [facility] 20:00:00 21:00:00 Leopoldo [id number] [address] [id number] 2022-08-05 2022-08-05 Outpatient [facility]bridge[facility]T [id number] [facility] 00:00:00 00:00:00 0928 [facility] l [facility] 2022-07-23 2022-07-23 (TEL) STLMLC STLMLC [id number] Co mmon 00:00:00 00:00:00 [facility] 2022-07-10 2022-07-10 (TEL) STLMLC STLMLC [id number] Co mmon 00:00:00 00:00:00 [facility] 2022-07-02 2022-07-02 (TEL) STLMLC STLMLC [id number] Co mmon 00:00:00 00:00:00 [facility] 2022-06-29 2022-06-29 (TEL) STLMLC STLMLC [id number] Co mmon 00:00:00 00:00:00 [facility] 2022-06-29 2022-06-29 (TEL) STLMLC STLMLC [id number] Co mmon 00:00:00 00:00:00 [facility] 2022-06-22 2022-06-22 OFFICE STLMLC STLMLC [id number] Co mmon 00:00:00 00:00:[address] [facility] it PT LEVEL 3 - [facility] 2022-06-17 2022-06-17 Outpatient FRANCIA LO, HCACL ANABELA [id number] [facility] 12:00:00 12:00:[address] 2022-06-17 2022-06-17 (TEL) STLMLC STLMLC [id number] Co mmon 00:00:00 00:00:00 [facility] 2022-06-11 2022-06-11 OFFICE STLMLC STLMLC [id number] Co mmon 00:00:00 00:00:00 VISIT [facility] PT - CHI LEVEL 4 [facility] 2022-06-11 2022-06-11 SUB ANNUAL STLMLC STLMLC [id number] Common 00:00:00 00:00:00 MCR [facility] WELLNESS - CHI VISIT [facility] 2022-06-08 2022-06-08 (TEL) STLMLC STLMLC [id number] Co mmon 00:00:00 00:00:00 [facility] 2022-05-22 2022-05-22 Outpatient PEDROSO[facility]V [facility] [id number] [facility] 06:10:00 06:10:00 0715 [facility] l [facility] 2022-05-21 2022-05-21 Outpatient [facility] [id number] [facility] 12:13:00 12:13:00 0714 Medica l Group 2022-05-04 2022-05-04 Urgent [facility] 1.2.840.114 [id number] Univers 15:20:00 15:40:00 Care [facility] [id number] i ty of [place] [id number] Ronal as FRANDY?BLEA [phone] [facility] [address] MEDICAL OFFICE BUILDING 2022-05-04 2022-05-04 [facility] [id number] Univers 15:20:00 15:20:00 ROCIO mejia [facility] 2022-05-04 2022-05-04 (TEL) STLMLC STLMLC [id number] Co mmon 00:00:00 00:00:00 [facility] 2022-04-20 2022-04-20 (TEL) STLMLC STLMLC [id number] Co mmon 00:00:00 00:00:00 [facility] 2022-04-20 2022-04-20 OFFICE STLMLC STLMLC [id number] Co mmon 00:00:00 00:00:00 VISIT EST Spir it PT LEVEL 3 - [facility] 2022-04-09 2022-04-09 OFFICE STLMLC STLMLC [id number] Co mmon 00:00:00 00:00:00 [facility]IT [facility] ESTAB PT - CHI LEVEL 4 [facility] 2022-04-07 2022-04-07 (TEL) STLMLC STLMLC [id number] Co mmon 00:00:00 00:00:00 [facility] 2022-03-27 2022-03-27 Outpatient BWilliams [facility] [id number] [facility] 06:00:00 06:00:00 0520 [facility] 2022-03-27 2022-03-27 (TEL) STLMLC STLMLC [id number] Co mmon 00:00:00 00:00:00 [facility] 2022-03-17 2022-03-17 (TEL) STLMLC STLMLC [id number] Co mmon 00:00:00 00:00:00 [facility] 2022-03-12 2022-03-12 OFFICE STLMLC STLMLC [id number] Co mmon 00:00:00 00:00:00 VISIT [facility] LEVEL 4 [facility] 2022-01-06 2022-01-06 (TEL) STLMLC STLMLC [id number] Co mmon 00:00:00 00:00:00 [facility] 2021-12-31 2021-12-31 (TEL) STLMLC STLMLC [id number] Co mmon 00:00:00 00:00:00 [facility] 2021-12-12 2021-12-12 (TEL) STLMLC STLMLC [id number] Co mmon 00:00:00 00:00:00 [facility] 2021-12-11 2021-12-11 Laboratory Only, Adc Pob2 Test [facility] 1.2 .840.114 [id number] Univers 09:15:00 09:30:00 Only Demian [facility]uer[facility].13 .[facility] [phone] [address] 2021-12-11 2021-12-11 Outpatient Ward VILLAFUERTE [facility] [id number] Univers 09:15:00 09:15:00 DEMIAN juanito [facility] 2021-12-11 2021-12-11 Outpatient Ward VILLAFUERTE [facility] [id number] Univers 09:15:00 09:15:00 DEMIAN [facility] 2021-12-11 2021-12-11 Letter VARINDER Alcaraz 1.2.840.114 [id number] Univers 00:00:00 00:00:00 (Out) Claudia JAMA [id number] it [facility] [id number] Ronal as [phone] [address] 2021-12-11 2021-12-11 Telephone Provider, [facility] 1.2.840.114 [id number] Univers 00:00:00 00:00:00 [facility] [id number] ity of [facility] [id number] Ronal as FRANDY?BLEA [phone] [address] MEDICAL OFFICE BUILDING 2021-12-03 2021-12-03 OFFICE [facility] STLMLC [id number] Co mmon 00:00:00 00:00:00 VISIT EST Spir it PT LEVEL 3 - [facility] 2021-11-27 2021-11-27 Outpatient R NETTA [facility] [id number] Univers 09:20:00 09:20:00 SHARRON purdy [facility] 2021-11-18 2021-11-18 Ancillary Rosemary Cotton [facility] 1.2.84 0.114 [id number] Univers 08:40:00 09:20:00 Visit Sharron Chadwick [id number] ity [id number] [id number] [facility] [address] [facility] 2021-11-13 2021-11-13 Ancillary Luisa Lara [facility] 1.2. 840.114 [id number] Univers 10:40:00 11:20:00 Visit Sharron Chadwick [id number] [facility]y [facility] [id number] [phone] Nm dical NAL [address] [facility] 2021-11-06 2021-11-06 Outpatient R NETTA [facility] [id number] Univers 09:20:00 09:20:00 SHARRON purdy [facility] 2021-10-30 2021-10-30 Ancillary Luisa Lara [facility] 1.2. 840.114 [id number] Univers 09:20:00 10:00:00 Visit Sharron Chadwick [id number] ity [facility] [id number] [phone] Nm dical NAL [address] [facility] 2021-10-29 2021-10-29 [place] [id number] [facility] 05:00:00 05:00:00 1222 Medica l Group 2021-10-21 2021-10-21 Ancillary Ana Martins [facility] 1.2.840 .114 [id number] Univers 09:27:24 10:07:24 Visit Sharron Chadwick [id number] ity [facility] [id number] [phone] Nm dical NAL [address] [facility] 2021-10-20 2021-10-20 Orders Doctor VARINDER 1.2.840.114 [id number] Univers 00:00:00 00:00:00 Only Unassigned, WILEY [id number] ity of [place] [facility] [id number] Ronal as [phone] [address] 2021-10-09 2021-10-09 Ancillary [place] Martins [place] 1.2.840 .114 [id number] Univers 09:58:01 10:38:01 Visit Sharron Chadwick [id number] ity [id number] [phone] Nm dical NAL [address] [facility] 2021-10-09 2021-10-09 (TEL) [facility] [id number] Co mmon 00:00:00 00:00:00 [facility] 2021-10-08 2021-10-08 Ancillary Rosemary Cotton [place] 1.2.84 0.114 [id number] Univers 10:09:44 10:49:44 Visit Sharron Chadwick [id number] ity [facility] [id number] [phone] Nm dical NAL [address] [facility] 2021-09-30 2021-09-30 Ancillary Kristin Rhoades [place] 1 .2.840.114 [id number] Univers 09:48:47 11:04:15 Visit Sharron Chadwick Yasmine GARCIA [id number] it[id number] [phone] Nm dical NAL [address] [facility] 2021-09-30 2021-09-30 Outpatient R NETTA [facility] [id number] Univers 09:40:00 11:04:15 SHARRON ity of [facility] 2021-09-25 2021-09-25 Ancillary Rajeev Rosa Kristin [facility] 1 .2.840.114 [id number] Univers 09:02:52 13:25:36 Visit Netta Sharron Yasmine GARCIA [id number] ity [facility] [id number] [phone] Nm dical NAL [address] [facility] 2021-09-25 2021-09-25 Orders Doctor REEDER 1.2.840.114 [id number] Univers 00:00:00 00:00:00 Only Unassigned, WILEY [id number] ity of [place] [facility] [id number] Ronal as [phone] [address] 2021-09-22 2021-09-22 Telephone [facility] 1.2.840.114 [id number] Univers 00:00:00 00:00:00 [facility] [id number] ity of [place] 4.2.7.2.686 Ronal as FRANDY?BLEA [phone] [facility] [address] [facility] 2021-09-10 2021-09-10 (TEL) [facility] [id number] Co mmon 00:00:00 00:00:00 Spirit - [facility] 2021-09-05 2021-09-05 (COVID STLMLC STLMLC [id number] Co mmon 00:00:00 00:00:00 Inj) COVID Spi rit Injection - [facility] 2021-09-03 2021-09-03 [facility] [id number] Univers 12:32:01 23:59:00 Encounter Humphrey [facility] [id number] ity of [place] [id number] [facility] [phone] [facility] [address] 2021-09-03 2021-09-03 Outpatient HUMPHREY NERI [facility] [id number] Univers 12:32:01 23:59:00 HUMPHREY MUHAMMAD ity [facility] 2021-09-02 2021-09-02 Outpatient DMG DMG [id number] Devoted 12:00:00 12:00:00 [facility] 2021-09-02 2021-09-02 (TEL) STLMLC STLMLC [id number] Co mmon 00:00:00 00:00:00 [facility] 2021-09-02 2021-09-02 (TEL) STLMLC STLMLC [id number] Co mmon 00:00:00 00:00:00 [facility] 2021-09-02 2021-09-02 OFFICE STLMLC STLMLC [id number] Co mmon 00:00:00 00:00:00 VISIT EST Spir it PT LEVEL 3 - [facility] 2021-09-02 2021-09-02 (TEL) STLMLC STLMLC [id number] Co mmon 00:00:00 00:00:00 [facility] 2021-09-01 2021-09-01 OFFICE STLMLC STLMLC [id number] Co mmon 00:00:00 00:00:00 VISIT Spirit ESTAB PT - [facility] LEVEL 4 [facility] 2021-09-01 2021-09-01 Orders Doctor VARINDER [id number] Univers 00:00:00 00:00:00 Only Unassigned, WILEY [id number] ity of [facility] [id number] [facility] [phone] [facility] [address] 2021-08-25 2021-08-25 (TEL) STLMLC STLMLC [id number] Co mmon 00:00:00 00:00:00 [facility] 2021-08-19 2021-08-19 Outpatient HUMPHREY NERI [facility] [id number] Univers 15:00:00 15:55:11 HUMPHREY MUHAMMAD [facility] 2021-08-19 2021-08-19 Office Jb [facility] [id number] Univers 14:46:17 15:55:11 Visit Humphrey [facility] [id number] ity of [place] [id number] Ronal as FRANDY?BLEA [phone] [address] MEDICAL OFFICE [facility] 2021-08-19 2021-08-19 Outpatient HUMPHREY NERI [facility] [id number] Univers 15:00:00 15:00:00 HUMPHREY MUHAMMAD [facility] 2021-08-13 2021-08-13 (TEL) STLC STLC [id number] Co mmon 00:00:00 00:00:00 [facility] 2021-08-13 2021-08-13 Orders Doctor VARINDER [id number] Univers 00:00:00 00:00:00 Only Unassigned, WILEY [id number] ity of [facility] [id number] Ronal as [phone] [facility] [address] 2021-08-11 2021-08-11 OFFICE STLC STLC [id number] Co mmon 00:00:00 00:00:00 VISIT [facility] PT - CHI LEVEL 4 [facility] 2021-08-11 2021-08-11 (TEL) STLC STLMLC [id number] Co mmon 00:00:00 00:00:00 Spirit [facility] 2021-08-08 2021-08-08 [facility] [id number] Univers 14:29:00 18:10:00 Rubina [place] [id number] i ty of [id number] [phone] [facility] [address] 2021-08-08 2021-08-08 (TEL) STLC STLMLC [id number] Co mmon 00:00:00 00:00:00 [facility] 2021-08-08 2021-08-08 (TEL) STLMLC STLMLC [id number] Co mmon 00:00:00 00:00:00 [facility] 2021-08-08 2021-08-08 Orders Doctor VARINDER [id number] Univers 00:00:00 00:00:00 Only Unassigned, WILEY [id number] ity of [facility] [id number] Ronal as [phone] [facility] [address] 2021-08-06 2021-08-06 (TEL) STLMLC STLMLC [id number] Co mmon 00:00:00 00:00:00 [facility] 2021-08-05 2021-08-05 OFFICE STLMLC STLMLC [id number] Co mmon 00:00:00 00:00:00 VISIT [facility] ESTAB PT - CHI LEVEL 4 [facility] 2021-08-04 2021-08-04 OFFICE STLMLC STLMLC [id number] Co mmon 00:00:00 00:00:00 VISIT [facility] ESTAB PT - CHI LEVEL 4 [facility] 2021-08-04 2021-08-04 (TEL) STLMLC STLMLC [id number] Co mmon 00:00:00 00:00:00 [facility] 2021-08-04 2021-08-04 SUB ANNUAL STLMLC STLMLC [id number] Common 00:00:00 00:00:00 MCR [facility] WELLNESS - CHI VISIT [facility] 2021-07-09 2021-07-09 Outpatient STLMLC STLMLC [id number] Common 00:00:00 00:00:00 [facility] 2021-07-09 2021-07-09 Outpatient STLMLC STLMLC [id number] Common 00:00:00 00:00:00 [facility] 2021-06-12 2021-06-12 Telephone LOIS Le [id number] Univers 00:00:00 00:00:00 Cristian SPECIALTY [id number] ity of [id number] [place] [facility] [phone] [facility] 2021-06-02 2021-06-02 Outpatient Ward LE [facility] [id number] Univers 13:00:00 14:58:09 CRISTIAN purdy [facility] 2021-06-02 2021-06-02 [facility] [id number] Univers 12:42:47 14:58:09 Visit Cristian NIXON [id number] ity of CARE [id number] [facility] CENTER AT [phone] [place] [facility] 2021-06-02 2021-06-02 Outpatient Ward LE [facility] [id number] Univers 13:00:00 13:00:00 CRISTIAN purdy [facility] 2021-05-19 2021-05-19 Outpatient STLMLC STLMLC [id number] Common 00:00:00 00:00:00 [facility] 2021-05-14 2021-05-14 Outpatient STLMLC STLMLC [id number] Common 00:00:00 00:00:00 [facility] 2021 2021 Orders Doctor REEDER [id number] Univers 00:00:00 00:00:00 Only Unassigned, WILEY [id number] ity of [place] [facility] [id number] Ronal as [phone] [address] 2021-05-01 2021-05-01 Orders Doctor VARINDER 1.2.840.114 [id number] Univers 00:00:00 00:00:00 Only Unassigned, WILEY [id number] ity of [place] [facility] [id number] Ronal as [phone] [address] 2021-01-11 2021-01-11 Outpatient [facility] [id number] Univers 13:15:00 13:15:00 ity [facility] 2020-12-14 2020-12-14 Outpatient [facility] [id number] Univers 13:50:00 13:50:00 ity of [facility] 2020-09-10 2020-09-10 Office [facility] 1.2.840.114 [id number] Univers 10:34:30 10:49:30 Visit Edwin Christiansen [id number] it y of Surgical [id number] Ronal as Specialti [phone] Nm dical es [address] [facility] 2020-09-10 2020-09-10 [facility] [id number] Univers 10:45:00 10:45:00 EDWIN juanito [facility] 2020-09-09 2020-09-09 Telephone [facility] 1.2.840.114 [id number] Univers 00:00:00 00:00:00 Sharron Underwood [employer] [id number] it y of Surgical [id number] Ronal as Specialti [phone] Nm dical es [address] [facility] 2020-08-29 2020-08-29 Hospital [facility] 1.2.840.114 [id number] Univers 09:09:36 23:59:00 Encounter Sharron Underwood [place] [id number] ity of [place] [id number] [place] [facility] [phone] [address] 2020-08-29 2020-08-29 Office [facility] [id number] Univers 09:51:17 10:16:33 Visit Sharron Underwood [employer] [id number] it y of Surgical [id number] Ronal as Specialti [phone] Nm dical es [address] [facility] 2020-08-29 2020-08-29 Outpatient [facility] [id number] Univers 10:00:00 10:00:00 SHARRON purdy [facility] 2020-08-28 2020-08-28 Telephone [facility] 1.2.840.114 [id number] Univers 00:00:00 00:00:00 Sharron Underwood [facility] [id number] it y of Surgical [id number] Ronal as Specialti [phone] Nm dical es [address] [facility] 2020-02-21 2020-02-21 Emergency X [facility] E[facility] [id number] Univers 18:52:30 21:26:00 YARELI purdy [facility] 2020-02-21 2020-02-21 Emergency [facility] 1.2.840.114 [id number] Univers 18:52:30 21:26:00 Yareli Garcia [id number] ity of [place] [id number] [facility] [phone] [address] 2020-01-17 2020-01-17 Emergency Tono Marie [facility] 1.2.840. 114 [id number] Univers 16:53:34 21:06:00 Thai Savage [id number] ity of [place] [id number] [facility] [phone] [address] 2020-01-17 2020-01-17 Emergency [facility] E[facility] [id number] Univers 16:53:34 21:06:00 THAI purdy [facility] 2020-01-17 2020-01-17 Orders Doctor VARINDER 1.2.840.114 [id number] Univers 00:00:00 00:00:00 Only Unassigned, WILEY [id number] ity of [place] [facility] [id number] Ronal as [phone] [facility] [address] Results This patient has no known results.
[2023-04-19] MEDS ORDERED: TRAMADOL HCL 50 MG TAB ONE (12:33)
--- NOTE | 2023-04-19 13:24 | RAD REPORT ---
EXAM DESCRIPTION: RAD - Ankle Right 3 View - 04/19/2023 1:09 pm CLINICAL HISTORY: Right ankle pain FINDINGS: No fracture or dislocation is seen. Mild soft tissue swelling
--- NOTE | 2023-04-19 13:32 | EDPHYS ---
Physician Documentation [facility] Name: Ghulam Acevedo Age: 77 yrs Sex: Female : 1945 Arrival Date: 04/19/2023 Time: 11:28 Bed DX3 Private MD: Wally [facility] ED Physician Harlan Hollis HPI: 04/19 13:25 This 77 yrs old Female presents to ER via Wheelchair with complaints of Laceration To kdr Leg, Ankle Injury. 13:28 The patient reportedly stepped in a hole on Wednesday and injured her right ankle. She kdr has abrasions to her mid calf on the lateral side and an abrasion to her medial right ankle.. Onset: The symptoms/episode began/occurred suddenly, Wednesday. Severity of symptoms: At their worst the symptoms were mild in the emergency department the symptoms are unchanged. The patient has not experienced similar symptoms in the past. The patient has not recently seen a physician. Historical: - Allergies: 12:02 benzocaine; jl7 12:02 Keflex; jl7 - Home Meds: 12:02 sitagliptin phosphate-metformin oral [Active]; jl7 - PMHx: 12:02 Osteoporosis; Diabetes mellitus; jl7 - Immunization history:: Adult Immunizations unknown. - Social history:: Smoking status: Patient denies any tobacco usage or history of. ROS: 13:28 Constitutional: Negative for fever, chills, and weight loss, Eyes: Negative for injury, kdr pain, redness, and discharge, ENT: Negative for injury, pain, and discharge, Neck: Negative for injury, pain, and swelling, Cardiovascular: Negative for chest pain, palpitations, and edema, Respiratory: Negative for shortness of breath, cough, wheezing, and pleuritic chest pain, Abdomen/GI: Negative for abdominal pain, nausea, vomiting, diarrhea, and constipation, Back: Negative for injury and pain, : Negative for injury, bleeding, discharge, and swelling, Skin: Negative for injury, rash, and discoloration, Neuro: Negative for headache, weakness, numbness, tingling, and seizure activity. Psych: Negative for depression, anxiety, suicide ideation, homicidal ideation, and hallucinations, Allergy/Immunology: Negative for hives, rash, and allergies, Endocrine: Negative for neck swelling, polydipsia, polyuria, polyphagia, and marked weight changes, Hematologic/Lymphatic: Negative for swollen nodes, abnormal bleeding, and unusual bruising. 13:28 MS/extremity: Positive for injury or acute deformity, abrasion, pain, tenderness, of the lateral aspect of right calf and medial aspect of right foot. Exam: 13:28 Skin: injury, abrasion(s), moderate sized abrasion noted, of the lateral aspect of kdr right calf and medial aspect of right foot. 15:57 Constitutional: This is a well developed, well nourished patient who is awake, alert, kdr and in no acute distress. Head/Face: Normocephalic, atraumatic. 15:57 Constitutional: The patient appears in no acute distress. Vital Signs: 12:04 BP 97 / 50; Pulse 65; Resp 17; Temp 97.9; Pulse Ox 98% ; Weight 67.13 kg; Height 5 ft. jl7 4 in. ; Pain 8/10; 12:04 Body Mass Index 25.40 (67.13 kg, 162.56 cm) jl7 12:04 Pain Scale: Adult jl7 MDM: 13:28 Data reviewed: vital signs, nurses notes, radiologic studies. ED course: Patient kdr continued to be stable in the ED was happy with the care provided the plan for discharge and follow-up. 13:31 Patient medically screened. kdr 04/19 13:06 Order name: Ankle Right 3 View; Complete Time: 13:25 EDMS 04/19 13:02 Order name: Misc. Order: Clean and dress wounds On foot; Complete Time: 13:43 kdr Administered Medications: 12:34 Drug: traMADol PO 50 mg Route: PO; jl7 Disposition Summary: 04/19/23 13:31 Discharge Ordered Location: Home kdr Problem: new kdr Symptoms: have improved kdr Condition: Stable kdr Diagnosis - Sprain of unspecified ligament of right ankle, initial encounter kdr - Abrasion, right lower leg kdr Followup: kdr - With: Rey Lo, DO - When: 2 - 3 days - Reason: Wound Recheck, If symptoms return, Further diagnostic work-up, Recheck today's complaints, Continuance of care, Re-evaluation by your physician Discharge Instructions: - Discharge Summary Sheet kdr - Ankle Sprain, [id number] kdr - Abrasion, [id number]-Sqkm kdr Forms: - Medication Reconciliation Form kdr - Thank You Letter kdr - Antibiotic Education kdr - Prescription Opioid Use kdr Prescriptions: - Cipro 500 mg Oral Tablet - take 1 tablet by ORAL route every 12 hours for 3 days; 6 tablet; Refills: 0, kdr Product Selection Permitted - Tramadol 50 mg Oral Tablet - take 1 tablet by ORAL route every 8 hours as needed; 12 tablet; Refills: 0, kdr Product Selection Permitted Signatures: Dispatcher [employer] EDMS Harlan Hollis MD MD kdr Leal, Jahala, RN RN jl7 Corrections: (The following items were deleted from the chart) 13:06 12:22 Ankle Left 3 View+RAD.RAD.BRZ ordered. EDMN EDMS
--- NOTE | 2023-04-19 13:32 | ER ---
Nurse's Notes [facility] Name: Ghulam Acevedo Age: 77 yrs Sex: Female : 1945 Arrival Date: 04/19/2023 Time: 11:28 Bed DX3 Private MD: Rey Lo Diagnosis: Sprain of unspecified ligament of right ankle, initial encounter;Abrasion, right lower leg Presentation: 04/19 12:04 Chief complaint: Patient states: Stepped in a hole on Wednesday, abrasions to right jl7 calf, shaffer and medial ankle, reports pain with ambulation. Coronavirus screen: At this time, the client does not indicate any symptoms associated with coronavirus-19. Ebola Screen: No symptoms or risks identified at this time. Initial Sepsis Screen: Does the patient meet any 2 criteria? No. Patient's initial sepsis screen is negative. Does the patient have a suspected source of infection? No. Patient's initial sepsis screen is negative. Risk Assessment: Do you want to hurt yourself or someone else? Patient reports no desire to harm self or others. Onset of symptoms was April 17, 2023. 12:04 Method Of Arrival: Wheelchair jl7 12:04 Acuity: JENNIFER 3 jl7 Historical: - Allergies: 12:02 benzocaine; jl7 12:02 Keflex; jl7 - Home Meds: 12:02 sitagliptin phosphate-metformin oral [Active]; jl7 - PMHx: 12:02 Osteoporosis; Diabetes mellitus; jl7 - Immunization history:: Adult Immunizations unknown. - Social history:: Smoking status: Patient denies any tobacco usage or history of. Screenin:54 [facility] ED Fall Risk Assessment (Adult) History of falling in the last 3 months, ss including since admission No falls in past 3 months (0 pts). Abuse screen: Denies threats or abuse. Denies injuries from another. Nutritional screening: No deficits noted. Tuberculosis screening: Never had TB. Assessment: 12:54 Reassessment: Patient appears in no apparent distress at this time. Warm blanket given ss for comfort. Awaiting XRAY results. Vital Signs: 12:04 BP 97 / 50; Pulse 65; Resp 17; Temp 97.9; Pulse Ox 98% ; Weight 67.13 kg; Height 5 ft. jl7 4 in. ; Pain 8/; 12:04 Body Mass Index 25.40 (67.13 kg, 162.56 cm) jl7 12:04 Pain Scale: Adult jl7 ED Course: 11:30 Patient arrived in ED. rg4 11:30 Rey Lo DO is Private Physician. rg4 11:30 Harlan Hollis MD is Attending Physician. kdr 12:04 Arm band placed on right wrist. jl7 12:05 Triage completed. jl7 12:23 Carmen Wilburn, RN is Primary Nurse. jl7 12:54 Patient has correct armband on for positive identification. Bed in low position. ss 13:10 Ankle Right 3 View In Process Unspecified. EDMS 13:30 Rey Lo DO is Referral Physician. kdr Administered Medications: 12:34 Drug: traMADol PO 50 mg Route: PO; jl7 Medication: 12:54 VIS not applicable for this client. ss Outcome: 13:31 Discharge ordered by . kdr 13:43 Discharged to home ambulatory, with family. jl7 13:43 Condition: stable 13:43 Discharge instructions given to patient, Instructed on discharge instructions, follow up and referral plans. medication usage, Demonstrated understanding of instructions, follow-up care, medications, Prescriptions given X 2. 13:43 Patient left the ED. jl7 Signatures: Dispatcher [employer] EDAK Harlan Hollis MD MD [facility] Isha Daigle, RN RN Orquidea Bowens rg4 Carmen Wilburn, MURIEL RN jl7
[2023-04-19 14:27] VITALS: BP 97/50; TEMP 97.9; O2SAT 98
== END 2023-04-19 13:43 | disposition home or self-care (01) ==
LOC: ER 11:28
DX: S93.401A Sprain of unspecified ligament of right ankle, initial encounter (principal); S90.511A Abrasion, right ankle, initial encounter; Z88.1 Allergy status to other antibiotic agents; Z88.6 Allergy status to analgesic agent
CPT/HCPCS: 99283